=== PATIENT | male | born 1955 | race Caucasian/White ===

== ENCOUNTER 2018-05-22 21:17 | Emergency (ER) | payer MEDICARE, SELFPAY ==
[2018-05-22 22:06] LABS: Hemoglobin 15.8 g/dL (14.0-18.0); Mean Corpuscular HGB CONC 32.9 g/dL (32.0-36.0); Mean Corpuscular Hemoglobin 31.8 pg (27.0-31.0); Mean Corpuscular Volume 96.5 fL (78.0-98.0); Mean Platelet Volume 7.3 fL (7.4-10.4); Platelet Count 206 thou/uL (130-400); RBC Distribution Width 12.1 % (11.5-14.5); Red Blood Cell (RBC) Count 4.97 mill/uL (4.70-6.10); White Blood Cell (WBC) Count 10.5 thou/uL (4.8-10.8)
[2018-05-22 22:21] LABS: Lymphocytes 10 % (21-51); MDiff Complete? YES; Monocytes 5 % (0-10); Neutrophil 85 % (42-75); Platelet Morphology Comment Appears Adequate; RBC Morphology Normal
[2018-05-22] MEDS ORDERED: Ketorolac Tromethamine 30 MG/ML VIAL ONE (22:28)
[2018-05-22 22:29] LABS: ALT (SGPT) 31 U/L (8-55); AST (SGOT) 21 U/L (5-34); Albumin 4.6 g/dL (3.4-4.8); Alkaline Phosphatase 101 U/L (40-150); Anion Gap 15 mmol/L (10-20); BUN (Urea Nitrogen) 30 mg/dL (8.4-25.7); Bilirubin, Total 0.8 mg/dL (0.2-1.2); Calc. Creatinine Clearance 0 mL/min (70-130); Calcium 9.5 mg/dL (7.8-10.44); Carbon Dioxide 26 mmol/L (23-31); Chloride 97 mmol/L (98-107); Estimated GFR-MDRD 62; Globulin 3.2 g/dL (2.4-3.5); Glucose 94 mg/dL (80-115); Protein, Total 7.8 g/dL (5.8-8.1); Sodium 134 mmol/L (136-145)
--- NOTE | 2018-05-22 22:33 | RAD ---
TWO VIEWS CHEST: 05/22/18 HISTORY: Dyspnea. Difficulty breathing. PA and lateral views of the chest is obtained on 05/22/18. Comparison made to previous exam from 06/05/16. Two views chest demonstrate a dual lead intracardiac defibrillator again seen. The cardiac silhouette is of normal size. No evidence of effusions, pneumonia or pneumothorax seen. No evidence of pulmonar y edema seen. No definite evidence of pneumonia or pneumothorax seen. Osteoporosis in the thoracic spine seen. IMPRESSION: No evidence of acute intrathoracic abnormality seen. POS: [facility]
== END 2018-05-23 00:47 | disposition home or self-care (01) ==
LOC: ERS 21:17
DX: J44.1 Chronic obstructive pulmonary disease with (acute) exacerbation (principal); J01.90 Acute sinusitis, unspecified; I50.9 Heart failure, unspecified; E78.5 Hyperlipidemia, unspecified; Z87.891 Personal history of nicotine dependence; Z71.6 Tobacco abuse counseling
CPT/HCPCS: 71046; 80053; 83880; 84484; 85025; 93005; 94640; 96374; 99406; J1885; J7620

== ENCOUNTER 2018-06-08 17:55 | Inpatient (IN) | payer MEDICARE ==
[~2018-06-08 17:55] MED LIST: ISOVUE-370 76%-LOCM 1 ML ONE
[2018-06-08 18:41] LABS: #Basophils 0.1 thou/uL (0.0-0.2); #Eosinphils 0.5 thou/uL (0.0-0.7); #Lymphocytes 2.7 thou/uL (1.20-3.40); #Monocytes 1.6 thou/uL (0.11-0.59); #Neutrophils 6.4 thou/uL (1.40-6.50); %Basophils 0.7 % (0.0-1.0); %Eosinophils 4.7 % (0.0-10.0); %Monocytes 14.4 % (0.0-10.0); %Neutrophils 56.2 % (42.0-75.0); Hemoglobin 14.1 g/dL (14.0-18.0); Mean Corpuscular HGB CONC 33.4 g/dL (32.0-36.0); Mean Corpuscular Hemoglobin 31.7 pg (27.0-31.0); Mean Corpuscular Volume 94.8 fL (78.0-98.0); Mean Platelet Volume 6.2 fL (7.4-10.4); Platelet Count 313 thou/uL (130-400); RBC Distribution Width 11.8 % (11.5-14.5); Red Blood Cell (RBC) Count 4.46 mill/uL (4.70-6.10); White Blood Cell (WBC) Count 11.3 thou/uL (4.8-10.8)
[2018-06-08 19:02] LABS: ALT (SGPT) 28 U/L (8-55); AST (SGOT) 16 U/L (5-34); Albumin 4.3 g/dL (3.4-4.8); Alkaline Phosphatase 100 U/L (40-150); Anion Gap 14 mmol/L (10-20); BUN (Urea Nitrogen) 26 mg/dL (8.4-25.7); Bilirubin, Total 0.8 mg/dL (0.2-1.2); CK (CPK) 43 U/L (30-200); Calc. Creatinine Clearance 0 mL/min (70-130); Calcium 9.9 mg/dL (7.8-10.44); Carbon Dioxide 31 mmol/L (23-31); Chloride 95 mmol/L (98-107); Estimated GFR-MDRD 60; Globulin 2.9 g/dL (2.4-3.5); Glucose 118 mg/dL (80-115); Lipase 16 U/L (8-78); Protein, Total 7.2 g/dL (5.8-8.1); Sodium 136 mmol/L (136-145)
[2018-06-08] MEDS ORDERED: Magnesium 2 GM/50 ML BAG (IN WATER) ONE (19:26)
[2018-06-08] MEDS ORDERED: methylPREDNISolone Sod Succ/PF 125 MG/2 ML VIAL ONE (19:26)
--- NOTE | 2018-06-08 19:45 | RAD ---
CHEST ONE VIEW: History: Dyspnea. Comparison: 05-22-18 FINDINGS: Lungs are mildly hyperinflated. No pneumothorax. The cardiac device is similar. No focal airspace con solidation. No acute osseous abnormality. IMPRESSION: No acute intrathoracic abnormality. Possible small sliding hiatal hernia. POS: [facility]
--- NOTE | 2018-06-08 20:24 | CT ---
CT ANGIOGRAM OF THE CHEST WITH CONTRAST: History: Dyspnea. COPD. Comparison: Chest radiograph same day. CT angiogram chest, 06-01-16. FINDINGS: CT angiogram of the chest performed after the intravenous administration of contrast. 3D rendering wa s provided. There is severe central alveolar emphysema. Scarring in the right lung apex. Scarring in the left celeste g apex. No consolidation. No pneumothorax. No effusion. Mild bilateral lower lobe bronchial wall thickening suggesting chronic bronchitis. No suspicious pulm onary nodule. No proximal segmental pulmonary arterial filling defect. No significant pericardial effusion. Limited evaluation of the upper abdomen appears unremarkable. No aortic dilation. Chronic appearing T6 superior endplate fracture. No acute displaced rib fracture. IMPRESSION: 1. No proximal segmental pulmonary arterial filling defect. 2. No acute process. 3. Severe emphysema. POS: [facility]
[2018-06-08] MEDS ORDERED: Acetaminophen 325 MG TAB ONE (23:56)
[2018-06-09] MEDS ORDERED: Ondansetron PF 4 MG/2 ML Vial IVP PRN (01:47)
[2018-06-09] MEDS ORDERED: Zolpidem Tartrate 5 MG TAB PO PRN (01:47)
[2018-06-09 03:28] LABS: #Lymphocytes 0.9 thou/uL (1.20-3.40); #Monocytes 0.2 thou/uL (0.11-0.59); #Neutrophils 7.2 thou/uL (1.40-6.50); %Basophils 0.3 % (0.0-1.0); %Eosinophils 0.2 % (0.0-10.0); %Lymphocytes 10.8 % (21.0-51.0); %Neutrophils 86.7 % (42.0-75.0); Hemoglobin 13.4 g/dL (14.0-18.0); Mean Corpuscular HGB CONC 33.2 g/dL (32.0-36.0); Mean Corpuscular Hemoglobin 31.7 pg (27.0-31.0); Mean Corpuscular Volume 95.4 fL (78.0-98.0); Mean Platelet Volume 6.5 fL (7.4-10.4); Platelet Count 302 thou/uL (130-400); RBC Distribution Width 11.7 % (11.5-14.5); Red Blood Cell (RBC) Count 4.22 mill/uL (4.70-6.10); White Blood Cell (WBC) Count 8.3 thou/uL (4.8-10.8)
[2018-06-09 03:46] LABS: Anion Gap 15 mmol/L (10-20); BUN (Urea Nitrogen) 26 mg/dL (8.4-25.7); Calc. Creatinine Clearance 0 mL/min (70-130); Calcium 10.1 mg/dL (7.8-10.44); Carbon Dioxide 29 mmol/L (23-31); Chloride 96 mmol/L (98-107); Estimated GFR-MDRD 60; Glucose 177 mg/dL (80-115); Potassium 4.2 mmol/L (3.5-5.1); Sodium 136 mmol/L (136-145)
[2018-06-09] MEDS ORDERED: methylPREDNISolone Sod Succ 40 MG VIAL ONE (04:30)
--- NOTE | 2018-06-09 04:38 | HP ---
CHIEF COMPLAINT: Shortness of breath. HISTORY OF PRESENT ILLNESS: This is a 63-year-old male who was admitting to the emergency room because of shortness of breath upon ambulation. The patient states that he has been having difficulty breathing for a while, states that he has been admitted here in the past as well having recently been seen in the ER about 10 days ago. The patient does admit to a past medical history of significant smoking and also states that he has tried to cut back, but unable to do so. The patient states at point in time of admission, he was having severe dyspnea on exertion and some mild chest discomfort as well, so he decided to come to the hospital. The patient, otherwise, denies any other associated symptoms. No alleviating or aggravating factors. The patient is seen and examined in the ER. All questions answered. REVIEW OF SYSTEMS: All systems reviewed, pertinent positives in HPI, otherwise negative. ALLERGIES: CODEINE AND PENICILLIN. FAMILY HISTORY: The patient states that hypertension runs in his family. SOCIAL HISTORY: Social drinker, heavy smoker. MEDICATIONS: See MAR. PHYSICAL EXAMINATION: VITAL SIGNS: Blood pressure was 144/88, respiratory rate of 18, saturations 100% on 4 L nasal cannula, heart rate of 65. GENERAL: The patient is lying in bed comfortably, sleeping at the beginning of the exam. HEENT: Pupils are equal, round, and reactive to light and accommodation. Extraocular muscles intact. Oral cavity moist and pink. NECK: Supple, mobile, and nontender. Thyroid appreciated. CHEST: Reveals severe wheezing in all lung doe. No increase in AP diameter. Barrel chested is noted. CARDIOVASCULAR: 2/6 systolic ejection murmur. Regular rate and rhythm, S1 and S2. ABDOMEN: Positive bowel sounds. Soft, nontender, and nondistended. No rebound or guarding noted. EXTREMITIES: 2+ peripheral pulses noted. Trace edema of bilateral lower extremities. NEUROLOGIC: Alert and oriented x3. No loss of sensory function. LABORATORY DATA: CBC within normal limits. Basic metabolic panel within normal limits. CTA of the chest was done, which shows no PE, however, severe emphysema noted. ASSESSMENT: 1. Shortness of breath. 2. Emphysema. 3. Chronic obstructive pulmonary disease. 4. Hypertension. 5. Hyperlipidemia. 6. Dyspnea on exertion. PLAN: 1. At this point in time, we will admit the patient to Internal Medicine Team. We will start the patient on DuoNebs as well as p.r.n. oxygen and steroids. 2. Advised the patient to stop smoking and follow a more relatively healthier lifestyle. 3. Resume home medications when reconciliation was done. 4. The patient wishes to remain a full code. 5. Blood cultures ordered and pending. However, no signs of SIRS or sepsis noted, so we will hold off on antibiotics. 6. P.r.n. medications for pain and shortness of breath as well as insomnia. 7. Case and plan discussed with patient at length. He understood and agreed with this plan. Job ID: [id number]
[2018-06-09] MEDS ORDERED: Carvedilol 6.25 MG TAB PO SCH (08:00)
[2018-06-09] MEDS ORDERED: Enoxaparin Sodium 40 MG/0.4 ML SYRINGE ONE (08:53)
[2018-06-09] MEDS ORDERED: Furosemide 40 MG TAB ONE (08:54)
[2018-06-09] MEDS ORDERED: Losartan 25 MG TAB PO SCH (09:00)
[2018-06-09] MEDS ORDERED: Enoxaparin Sodium 40 MG/0.4 ML SYRINGE SC SCH (09:00)
[2018-06-09] MEDS: Furosemide 40 MG TAB PO SCH (09:05)
[2018-06-09] MEDS: Aspirin 81 mg Enteric Coated Tablet PO SCH (09:05)
[2018-06-09] MEDS: methylPREDNISolone Sod Succ 40 MG VIAL IVP SCH ×4 (11:52→23:30)
[2018-06-09] MEDS: Acetaminophen 325 MG TAB PO PRN ×2 (12:04→23:30)
[2018-06-09] MEDS ORDERED: guaiFENesin ER 600 MG TAB PO SCH (12:45)
[2018-06-09] MEDS ORDERED: Cepastat Lozenges 1 LOZ PO PRN (13:11)
--- NOTE | 2018-06-09 13:11 | PDOC.PN ---
- Subjective Encounter Start Date: 06/09/18 Encounter Start Time: 12:30 Patient seen and examined for COPD exacerbation. Feels better. Cough will mild production. No new complaints. No overnight events - Objective MAR Reviewed: Yes Vital Signs & Weight: Vital Signs (12 hours) Temp Pulse Resp BP BP Pulse Ox 06/09/18 11:40 96.7 F L 76 28 H 132/77 91 L 06/09/18 09:05 135/89 Weight Weight 140 lb Result Diagrams: 06/09/18 03:19 06/09/18 03:19 Radiology Reviewed by me: Yes (CTA - No PE, Emphysema) Phys Exam - Physical Examination Constitutional: NAD Respiratory: no rales, no rhonchi, wheezing present (scat) Cardiovascular: RRR, no rub Gastrointestinal: soft, non-tender, positive bowel sounds Musculoskeletal: no edema Neurological: non-focal, moves all 4 limbs Dx/Plan - Plan plan discussed w/ family, DVT proph w/lovenox, DVT proph w/SCDs 1. Acute hypoxic resp failure due to COPD Exacerbation 2. Chronic systolic HF EF 15% ACC stage C s/p AICD - followed by HF clinic 3. CAD 4. Former smoker 5. HLD 6. Dyslipidemia 7. CKD 2 PLAN: Cont IV Solumedrol Add PO Atbx Add Nebs Q4h Resume home meds Cont ASA Cont Lasix at 40 mg daily per patient req Consult Pulmonary Patient unable to tolerate Prednisone Review of Systems - Review of Systems Constitutional: negative: fever, chills, sweats, weakness, malaise, other Gastrointestinal: negative: Nausea, Vomiting, Abdominal Pain, Diarrhea, Constipation, Melena, Hematochezia, Other - Medications/Allergies Allergies/Adverse Reactions: Allergies Allergy/AdvReac Type Severity Reaction Status Date / Time codeine Allergy Verified 12/26/13 17:40 Penicillins Allergy Verified 12/26/13 17:40 prednisone AdvReac Unknown Verified 06/09/18 13:15 Medications: Current Medications Acetaminophen (Tylenol) 650 mg PO Q4H PRN PRN Reason: Headache/Fever/Mild Pain (1-3) Last Admin: 06/09/18 12:04 Dose: 650 mg Albuterol/Ipratropium (Duoneb) 3 ml NEB [id number] NICHOLAS Albuterol/Ipratropium (Duoneb) 3 ml NEB [id number] PRN PRN Reason: SOB &/or Wheezing Aspirin (Ecotrin) 81 mg PO DAILY [facility] Last Admin: 06/09/18 09:05 Dose: 81 mg Carvedilol (Coreg) 25 mg PO BID-WM [facility] Cefdinir (Omnicef) 300 mg PO BID [facility] Cefdinir (Omnicef) 300 mg PO ONE [facility] Doxycycline Hyclate (Vibramycin) 100 mg PO BID [facility] Doxycycline Hyclate (Vibramycin) 100 mg PO ONE [facility] Furosemide (Lasix) 40 mg PO DAILY [facility] Last Admin: 06/09/18 09:05 Dose: 40 mg Guaifenesin (Mucinex) 600 mg PO Q12HR [facility] Guaifenesin (Mucinex) 600 mg PO NOW [facility] Stop: 06/09/18 14:45 Losartan Potassium (Cozaar) 25 mg PO DAILY [facility] Methylprednisolone Sodium Succinate (Solu-Medrol) 40 mg IVP Q6HR [facility] Last Admin: 06/09/18 12:06 Dose: 40 mg Mometasone Furoate/Formoterol Fumar (Dulera 200 Mcg/5 Mcg Inhaler) 2 puff INH BID-RT [facility] Ondansetron HCl (Zofran) 4 mg IVP Q6H PRN PRN Reason: Nausea/Vomiting Pantoprazole Sodium (Protonix) 40 mg PO DAILY [facility] Pantoprazole Sodium (Protonix) 40 mg PO ONE ONE Stop: 06/09/18 12:46 Sodium Chloride (Flush - Normal Saline) 10 ml IVF Q12HR PRN PRN Reason: Saline Flush Spironolactone (Aldactone) 25 mg PO QAM-[facility] Spironolactone (Aldactone) 25 mg PO ONE [facility]
[2018-06-09] MEDS ORDERED: Spironolactone 25 MG TAB PO SCH (15:00)
[2018-06-09] MEDS ORDERED: Cefdinir 300 MG CAP PO SCH (15:00)
[2018-06-09] MEDS ORDERED: Doxycycline 100 MG CAP PO SCH (15:00)
[2018-06-09] MEDS: Carvedilol 25 MG TAB PO SCH (16:54)
[2018-06-09] MEDS: Mometasone/Formoterol 120 PUFF INHALER INH SCH (19:14)
[2018-06-09] MEDS ORDERED: Atorvastatin Calcium 40 MG TAB PO SCH (21:00)
[2018-06-09] MEDS: Cefdinir 300 MG CAP PO SCH (21:56)
[2018-06-09] MEDS: guaiFENesin ER 600 MG TAB PO SCH (21:57)
[2018-06-09] MEDS: Doxycycline 100 MG CAP PO SCH (21:57)
--- NOTE | 2018-06-09 23:41 | CON ---
DATE OF CONSULTATION: 06/09/2018 SERVICE: Pulmonary Medicine. REASON FOR CONSULTATION: COPD exacerbation. HISTORY OF PRESENT ILLNESS: The patient is a 63-year-old white male with past medical history significant for COPD. He was in his usual state of health until 1 to 2 weeks prior to admission. He started having increasing dyspnea on exertion , cough. He did not have much in the way of sputum production beyond his baseline. That being said, it has not changed colors. He denies any current fevers, chills, nausea, vomiting, or diarrhea. He is not having any night sweats or hemoptysis. Denies having any unexplained weight loss. Either way, he presented to the emergency department because of the dyspnea on exertion or vague chest discomfort. He has been placed in the hospital. He has had a significant improvement with steroids, nebulized medications, and antibiotics. Otherwise, he is returning to his usual state of health, although he is not quite there yet. He has a history of being intubated because of respiratory issues. This occurred about 1 year ago. At that point, my colleague, Dr. Ford took care of him. PAST MEDICAL HISTORY: 1. COPD. 2. Tobacco abuse. 3. Hypertension. 4. Chronic systolic heart failure (nonischemic). 5. Right eye blindness. PAST SURGICAL HISTORY: 1. Right hand surgery. 2. AICD placement. FAMILY HISTORY: Noncontributory. SOCIAL HISTORY: The patient has greater than a 70 pack-year history of smoking, previously quit in 2013. He is a social alcohol drinker, but denies using it to excess. Also uses marijuana occasionally, but denies any other illicit drugs. He has no exposures to chemicals, dust, asbestos, or tuberculosis so far as he is aware. ALLERGIES: 1. PENICILLIN. 2. CODEINE. MEDICATIONS: List of his inpatient medications was reviewed. Multiple updates were made. REVIEW OF SYSTEMS: General, head, ears, eyes, nose, throat, cardiovascular, respiratory, GI, , musculoskeletal, neurologic, and skin are negative except as mentioned in the HPI. PHYSICAL EXAMINATION: VITAL SIGNS: Afebrile, pulse 78, blood pressure 120/67, respirations 18, saturation 95% on 2 L nasal cannula. GENERAL: The patient is awake and alert, in no apparent distress. LUNGS: Very reduced air entry. There is a prolonged expiratory phase. He is not really moving enough air to appreciate adventitious sounds. HEART: Normal rate. Regular. ABDOMEN: Soft, nontender, and nondistended. Bowel sounds are positive. MUSCULOSKELETAL: No cyanosis or clubbing. No pitting in the bilateral lower extremities. NEUROLOGIC: Grossly nonfocal. LABORATORY DATA: WBC 8.3, hemoglobin 13.4, and platelets 302,000. INR 1.3. PH 7.38, pCO2 of 37, pO2 of 109 one year ago. Basic metabolic profile and liver function studies are unremarkable. BNP 439, which is slightly above baseline. Troponins are negative x2. Urinalysis is unremarkable. Blood cultures x2 are negative to date. IMAGING DATA: Chest x-ray demonstrates hyperexpanded lungs with no acute cardiopulmonary abnormality. CTA of the chest demonstrates no evidence of pulmonary embolism, fairly extensive emphysematous changes are noted. He has a large anterior cardiac space. There is biapical scarring present. Compared to May of 2016, one year ago, it is difficult to tell whether or not it is new or old because he had so many changes on that CT scan associated with his volume overload state at that time. ASSESSMENT: 1. Acute hypoxic respiratory failure. 2. Chronic obstructive pulmonary disease with acute exacerbation. 3. Nonischemic cardiomyopathy (EF previously 20%). DISCUSSION AND PLAN: We will continue the steroids, nebulized medications, and antibiotics. We will be careful with volume. Currently, he looks essentially euvolemic. That being said, a dose of Lasix will be considered if he fails to improve significantly to baseline. Pulmonary Critical Care will continue to follow along while the patient remains inhouse. Dr. Ford has an established relationship with Mr. Thompson and we will continue following starting tomorrow. 70 minutes have been devoted to this patient in various activities. I personally reviewed all imaging studies and laboratory data noted within this document. For fifty percent of this time, I was interacting with the patient at the bedside or coordinating care with the care team. For the remainder of the time I was immediately available to the patient in the hospital unit. Job ID: [id number] [facility]
[2018-06-10] MEDS: methylPREDNISolone Sod Succ 40 MG VIAL IVP SCH ×3 (06:15→18:58)
[2018-06-10] MEDS: Mometasone/Formoterol 120 PUFF INHALER INH SCH ×2 (07:59→18:14)
[2018-06-10] MEDS: Aspirin 81 mg Enteric Coated Tablet PO SCH (08:38)
[2018-06-10] MEDS: guaiFENesin ER 600 MG TAB PO SCH ×2 (08:38→20:41)
[2018-06-10] MEDS: Spironolactone 25 MG TAB PO SCH (08:39)
[2018-06-10] MEDS: Carvedilol 25 MG TAB PO SCH ×2 (08:39→18:56)
[2018-06-10] MEDS: Furosemide 40 MG TAB PO SCH (08:39)
[2018-06-10] MEDS: Losartan 25 MG TAB PO SCH (08:40)
[2018-06-10] MEDS: Cefdinir 300 MG CAP PO SCH ×2 (08:41→20:41)
[2018-06-10] MEDS: Doxycycline 100 MG CAP PO SCH ×2 (08:41→20:41)
--- NOTE | 2018-06-10 12:00 | PRG ---
DATE OF SERVICE: 06/10/2018 SUBJECTIVE: A 63-year-old gentleman, who was admitted with a COPD exacerbation and bronchitis. He said he is still weak. He is short of breath. OBJECTIVE: VITAL SIGNS: Temperature 97, pulse 77, saturations are 94% on 3 L, and blood pressure 130/59. CHEST: Decreased breath sounds. No wheezing. CARDIAC: Normal S1 and S2. No gallops. ABDOMEN: No mass. IMPRESSION: Severe exacerbation of bronchitis. PLAN: Continue present treatment; antibiotics, neb treatments, and steroids. Switch over to oral prednisone tomorrow. We will follow. Job ID: [id number]
[2018-06-10] MEDS ORDERED: Melatonin 3 MG TAB PO PRN (17:56)
--- NOTE | 2018-06-10 18:01 | PDOC.PN ---
- Subjective Encounter Start Date: 06/10/18 Encounter Start Time: 11:30 Patient seen and examined for Resp failure. SOB on mild exertion. Cough +. No new complaints. No overnight events - Objective MAR Reviewed: Yes Vital Signs & Weight: Vital Signs (12 hours) Temp Pulse Resp BP Pulse Ox 06/10/18 15:55 97.6 F 67 18 123/66 93 L 06/10/18 15:15 86 22 H 92 L 06/10/18 12:00 97.6 F 87 24 H 139/82 92 L 06/10/18 11:44 92 20 92 L 06/10/18 08:00 97.6 F 77 22 H 120/59 L 94 L 06/10/18 07:50 89 20 93 L Weight Weight 140 lb I&O: 06/09/18 06/10/18 06/11/18 06:59 06:59 06:59 Output Total 250 Balance -250 Result Diagrams: 06/09/18 03:19 06/09/18 03:19 Phys Exam - Physical Examination Constitutional: NAD Neck: no JVD Respiratory: wheezing present (scat) with bilateral rhonchi Cardiovascular: RRR, no rub Gastrointestinal: soft, non-tender, positive bowel sounds Musculoskeletal: no edema Dx/Plan - Plan DVT proph w/SCDs 1. Acute hypoxic resp failure due to COPD Exacerbation 2. Chronic systolic HF - EF 15% ACC stage C s/p AICD - followed by HF clinic 3. CAD 4. Former smoker 5. HLD 6. Dyslipidemia 7. CKD 2 PLAN: Cont IV Steroids Cont Omnicef/Doxycycline Cont Nebs Q4h Cont current meds as below Cont ASA Review of Systems - Review of Systems Cardiovascular: negative: chest pain, palpitations, orthopnea, paroxysmal nocturnal dyspnea, edema, light headedness, other Gastrointestinal: negative: Nausea, Vomiting, Abdominal Pain, Diarrhea, Constipation, Melena, Hematochezia, Other - Medications/Allergies Allergies/Adverse Reactions: Allergies Allergy/AdvReac Type Severity Reaction Status Date / Time codeine Allergy Verified 06/09/18 14:45 Penicillins Allergy Verified 06/09/18 14:45 prednisone AdvReac Unknown Verified 06/09/18 13:15 Medications: Current Medications Acetaminophen (Tylenol) 650 mg PO Q4H PRN PRN Reason: Headache/Fever/Mild Pain (1-3) Last Admin: 06/09/18 23:30 Dose: 650 mg Albuterol/Ipratropium (Duoneb) 3 ml NEB [id number] [facility] Last Admin: 06/10/18 15:15 Dose: 3 ml Albuterol/Ipratropium (Duoneb) 3 ml NEB [id number] PRN PRN Reason: SOB &/or Wheezing Aspirin (Ecotrin) 81 mg PO DAILY [facility] Last Admin: 06/10/18 08:38 Dose: 81 mg Carvedilol (Coreg) 25 mg PO BID-[facility] Last Admin: 06/10/18 08:39 Dose: 25 mg Cefdinir (Omnicef) 300 mg PO BID [facility] Last Admin: 06/10/18 08:41 Dose: 300 mg Diphenhydramine HCl (Benadryl) 25 mg PO Q6H PRN PRN Reason: Itching & Insomnia Doxycycline Hyclate (Vibramycin) 100 mg PO BID [facility] Last Admin: 06/10/18 08:41 Dose: 100 mg Furosemide (Lasix) 40 mg PO DAILY [facility] Last Admin: 06/10/18 08:39 Dose: 40 mg Guaifenesin (Mucinex) 600 mg PO Q12HR [facility] Last Admin: 06/10/18 08:38 Dose: 600 mg Losartan Potassium (Cozaar) 25 mg PO DAILY [facility] Last Admin: 06/10/18 08:40 Dose: 25 mg Melatonin (Melatonin) 3 mg PO HS PRN PRN Reason: Insomnia Methylprednisolone Sodium Succinate (Solu-Medrol) 40 mg IVP Q6HR [facility] Last Admin: 06/10/18 14:06 Dose: 40 mg Mometasone Furoate/Formoterol Fumar (Dulera 200 Mcg/5 Mcg Inhaler) 2 puff INH BID-RT [facility] Last Admin: 06/10/18 07:59 Dose: 2 puff Ondansetron HCl (Zofran) 4 mg IVP Q6H PRN PRN Reason: Nausea/Vomiting Pantoprazole Sodium (Protonix) 40 mg PO DAILY [facility] Last Admin: 06/10/18 08:38 Dose: 40 mg Sodium Chloride (Flush - Normal Saline) 10 ml IVF Q12HR PRN PRN Reason: Saline Flush Last Admin: 06/10/18 14:09 Dose: 10 ml Spironolactone (Aldactone) 25 mg PO QAM-[facility] Last Admin: 06/10/18 08:39 Dose: 25 mg Throat Lozenges (Cepastat Lozenges) 1 brennon PO Q2H PRN PRN Reason: Sore Throat
[2018-06-10] MEDS: diphenhydrAMINE 25 MG CAP PO PRN (20:41)
[2018-06-11] MEDS: methylPREDNISolone Sod Succ 40 MG VIAL IVP SCH ×2 (00:01→06:11)
[2018-06-11 07:12] LABS: Anion Gap 16 mmol/L (10-20); BUN (Urea Nitrogen) 24 mg/dL (8.4-25.7); Calc. Creatinine Clearance 65 mL/min (70-130); Calcium 9.1 mg/dL (7.8-10.44); Carbon Dioxide 24 mmol/L (23-31); Chloride 102 mmol/L (98-107); Estimated GFR-MDRD 74; Glucose 199 mg/dL (80-115); Potassium 4.5 mmol/L (3.5-5.1); Sodium 137 mmol/L (136-145)
[2018-06-11] MEDS: Mometasone/Formoterol 120 PUFF INHALER INH SCH ×2 (07:42→19:40)
[2018-06-11] MEDS: Losartan 25 MG TAB PO SCH (08:06)
[2018-06-11] MEDS: Furosemide 40 MG TAB PO SCH (08:06)
[2018-06-11] MEDS: guaiFENesin ER 600 MG TAB PO SCH ×2 (08:06→21:25)
[2018-06-11] MEDS: Carvedilol 25 MG TAB PO SCH ×2 (08:07→16:19)
[2018-06-11] MEDS: Spironolactone 25 MG TAB PO SCH (08:07)
[2018-06-11] MEDS: Doxycycline 100 MG CAP PO SCH ×2 (08:07→21:25)
--- NOTE | 2018-06-11 09:15 | PRG ---
DATE OF SERVICE: 06/11/2018 SUBJECTIVE: This morning, he is better. He is less short of breath. He is walking in the halls. OBJECTIVE: VITAL SIGNS: His saturations are 94% on 3 L, respiratory rate 14, temperature 97, blood pressure 120/64. CHEST: Decreased breath sounds. No wheezing. CARDIAC: Normal S1, S2. No gallops. ABDOMEN: No masses. IMPRESSION: Chronic obstructive pulmonary disease exacerbation, bronchitis, former smoker, quit smoking a month ago. Switch over to prednisone, PT and supportive care. Hopefully, he can be discharged home in the next 24-48 hours. Job ID: [id number]
[2018-06-11] MEDS: Cefdinir 300 MG CAP PO SCH (11:32)
[2018-06-11] MEDS: Aspirin 81 mg Enteric Coated Tablet PO SCH (12:34)
--- NOTE | 2018-06-11 15:32 | PRG ---
DATE OF SERVICE: 06/11/2018 SUBJECTIVE: Ronen Thompson is a 63-year-old gentleman, who was switched over to prednisone today. I had multiple phone calls from the patient's nurses that the patient and family members were concerned that the prednisone that he took in the past made him crazy. He has refused to take the prednisone. His allergies include prednisone along with penicillin and codeine. Therefore, his prednisone has been discontinued as per the patient and family wishes. Prednisone side affects apparently making him hallucinating crazy. Job ID: [id number]
[2018-06-11] MEDS: Acetaminophen 325 MG TAB PO PRN (16:21)
--- NOTE | 2018-06-11 17:31 | PDOC.PN ---
- Subjective Encounter Start Date: 06/11/18 Encounter Start Time: 11:00 Patient seen and examined for Resp failure. SOB improving. No new complaints. No overnight events - Objective MAR Reviewed: Yes Vital Signs & Weight: Vital Signs (12 hours) Temp Pulse Resp BP BP Pulse Ox 06/11/18 15:53 97.6 F 72 16 124/66 94 L 06/11/18 14:47 74 16 94 L 06/11/18 11:46 97.6 F 70 24 H 126/68 95 06/11/18 10:59 78 16 94 L 06/11/18 08:00 97.6 F 70 24 H 124/64 94 L 06/11/18 07:39 69 16 93 L Weight Weight 140 lb I&O: 06/10/18 06/11/18 06/12/18 06:59 06:59 06:59 Intake Total 360 Output Total 250 Balance -250 360 Result Diagrams: 06/09/18 03:19 06/11/18 06:40 Phys Exam - Physical Examination Constitutional: NAD Respiratory: no rales, wheezing present Cardiovascular: RRR, no rub Gastrointestinal: soft, non-tender, positive bowel sounds Musculoskeletal: no edema Neurological: moves all 4 limbs Dx/Plan - Plan DVT proph w/SCDs 1. Acute hypoxic resp failure due to COPD Exacerbation 2. Chronic systolic HF - EF 15% ACC stage C s/p AICD 3. CAD 4. Former smoker 5. HLD 6. Dyslipidemia 7. CKD 2 PLAN: Cont Doxycycline, O2 supp and Nebs Steroids changed to PO Cont current meds as below Review of Systems - Review of Systems Respiratory: Cough, Dry, Shortness of Breath, SOB with Excertion, Wheezing. negative: Hemoptysis, Pleuritic Pain, Sputum Cardiovascular: negative: chest pain, palpitations, orthopnea, paroxysmal nocturnal dyspnea, edema, light headedness, other Gastrointestinal: negative: Nausea, Vomiting, Abdominal Pain, Diarrhea, Constipation, Melena, Hematochezia, Other - Medications/Allergies Allergies/Adverse Reactions: Allergies Allergy/AdvReac Type Severity Reaction Status Date / Time codeine Allergy Verified 06/09/18 14:45 Penicillins Allergy Verified 06/09/18 14:45 prednisone AdvReac Unknown Verified 06/09/18 13:15 Medications: Current Medications Acetaminophen (Tylenol) 650 mg PO Q4H PRN PRN Reason: Headache/Fever/Mild Pain (1-3) Last Admin: 06/11/18 16:21 Dose: 650 mg Albuterol/Ipratropium (Duoneb) 3 ml NEB [id number] [facility] Last Admin: 06/11/18 14:47 Dose: 3 ml Albuterol/Ipratropium (Duoneb) 3 ml NEB [id number] PRN PRN Reason: SOB &/or Wheezing Aspirin (Ecotrin) 81 mg PO DAILY [facility] Last Admin: 06/11/18 12:34 Dose: 81 mg Carvedilol (Coreg) 25 mg PO BID-[facility] Last Admin: 06/11/18 16:19 Dose: 25 mg Diphenhydramine HCl (Benadryl) 25 mg PO Q6H PRN PRN Reason: Itching & Insomnia Last Admin: 06/10/18 20:41 Dose: 25 mg Doxycycline Hyclate (Vibramycin) 100 mg PO BID [facility] Last Admin: 06/11/18 08:07 Dose: 100 mg Furosemide (Lasix) 40 mg PO DAILY [facility] Last Admin: 06/11/18 08:06 Dose: 40 mg Guaifenesin (Mucinex) 600 mg PO Q12HR [facility] Last Admin: 06/11/18 08:06 Dose: 600 mg Losartan Potassium (Cozaar) 25 mg PO DAILY [facility] Last Admin: 06/11/18 08:06 Dose: 25 mg Melatonin (Melatonin) 3 mg PO HS PRN PRN Reason: Insomnia Mometasone Furoate/Formoterol Fumar (Dulera 200 Mcg/5 Mcg Inhaler) 2 puff INH BID-RT [facility] Last Admin: 06/11/18 07:42 Dose: 2 puff Ondansetron HCl (Zofran) 4 mg IVP Q6H PRN PRN Reason: Nausea/Vomiting Pantoprazole Sodium (Protonix) 40 mg PO DAILY [facility] Last Admin: 06/11/18 08:06 Dose: 40 mg Prednisone (Prednisone) 20 mg PO QAM [facility] Sodium Chloride (Flush - Normal Saline) 10 ml IVF Q12HR PRN PRN Reason: Saline Flush Last Admin: 06/10/18 19:00 Dose: 10 ml Spironolactone (Aldactone) 25 mg PO QAM-[facility] Last Admin: 06/11/18 08:07 Dose: 25 mg Throat Lozenges (Cepastat Lozenges) 1 brennon PO Q2H PRN PRN Reason: Sore Throat
[2018-06-12] MEDS: Acetaminophen 325 MG TAB PO PRN ×2 (03:23→09:20)
[2018-06-12] MEDS: Mometasone/Formoterol 120 PUFF INHALER INH SCH ×2 (06:58→19:41)
[2018-06-12] MEDS ORDERED: predniSONE 20 MG TAB PO SCH ×3 (08:00→09:00)
[2018-06-12] MEDS: Doxycycline 100 MG CAP PO SCH ×2 (08:46→20:36)
[2018-06-12] MEDS: Spironolactone 25 MG TAB PO SCH (08:46)
[2018-06-12] MEDS: Carvedilol 25 MG TAB PO SCH ×2 (08:47→16:25)
[2018-06-12] MEDS: Losartan 25 MG TAB PO SCH (08:47)
[2018-06-12] MEDS: guaiFENesin ER 600 MG TAB PO SCH ×2 (08:47→20:36)
[2018-06-12] MEDS: Furosemide 40 MG TAB PO SCH (08:48)
[2018-06-12] MEDS: Aspirin 81 mg Enteric Coated Tablet PO SCH (08:48)
--- NOTE | 2018-06-12 10:08 | PRG ---
DATE OF SERVICE: 06/12/2018 SUBJECTIVE: This morning, he is awake, alert, and responsive. He was agitated last night, but this morning, he is better. OBJECTIVE: VITAL SIGNS: His saturations are 92% on room air, respiratory rate 18, temperature 97, and blood pressure 130/86. CHEST: Decreased breath sounds. No wheezing. CARDIAC: Normal S1 and S2. No gallops. ABDOMEN: No masses. IMPRESSION: 1. Chronic obstructive pulmonary disease exacerbation. 2. Former smoker. 3. Major reaction to prednisone. Refused to take prednisone. 4. Rhinitis. PLAN: Pulmonary jimenez, he is stable enough to be discharged home. Follow up with his primary care physician. He can see Pulmonary if he wants to in 4 weeks. Job ID: [id number]
[2018-06-12] MEDS: diphenhydrAMINE 25 MG CAP PO PRN ×2 (10:15→21:52)
[2018-06-12] MEDS ORDERED: methylPREDNISolone 4 mg Tablet PO SCH (10:45)
--- NOTE | 2018-06-12 16:09 | PDOC.PN ---
- Subjective Encounter Start Date: 06/12/18 Encounter Start Time: 09:00 Patient seen and examined for COPD exacerbation. Feels gen weak. Dry cough. Not slept well. No other complaints. No overnight events - Objective MAR Reviewed: Yes Vital Signs & Weight: Vital Signs (12 hours) Temp Pulse Resp BP BP Pulse Ox 06/12/18 13:23 97.7 F 70 18 123/79 94 L 06/12/18 10:49 89 18 92 L 06/12/18 08:00 97.0 F L 71 18 132/86 97 06/12/18 06:56 81 18 90 L 06/12/18 04:39 97.7 F 65 18 131/67 94 L Weight Weight 140 lb I&O: 06/11/18 06/12/18 06/13/18 06:59 06:59 06:59 Intake Total 360 Balance 360 Result Diagrams: 06/09/18 03:19 06/11/18 06:40 Phys Exam - Physical Examination Constitutional: NAD Respiratory: no rales, wheezing present Scat rhonchi Cardiovascular: RRR, no rub Gastrointestinal: soft, non-tender, positive bowel sounds Musculoskeletal: no edema Neurological: non-focal, moves all 4 limbs Psychiatric: A&O x 3 Dx/Plan - Plan DVT proph w/SCDs 1. Acute hypoxic resp failure due to COPD Exacerbation 2. Chronic systolic HF - EF 15% ACC stage C s/p AICD 3. CAD 4. Former smoker 5. HLD 6. Dyslipidemia 7. CKD 2 PLAN: Add low dose Medrol (Patient refusing to try Prednisone) Cont Doxycycline Cont O2 supp and Nebs Cont current meds as below Review of Systems - Review of Systems Respiratory: Cough, Dry, Wheezing. negative: Shortness of Breath, Hemoptysis, SOB with Excertion, Pleuritic Pain, Sputum Cardiovascular: negative: chest pain, palpitations, orthopnea, paroxysmal nocturnal dyspnea, edema, light headedness, other Gastrointestinal: negative: Nausea, Vomiting, Abdominal Pain, Diarrhea, Constipation, Melena, Hematochezia, Other - Medications/Allergies Allergies/Adverse Reactions: Allergies Allergy/AdvReac Type Severity Reaction Status Date / Time codeine Allergy Verified 06/09/18 14:45 Penicillins Allergy Verified 06/09/18 14:45 prednisone AdvReac Unknown Verified 06/09/18 13:15 Medications: Current Medications Acetaminophen (Tylenol) 650 mg PO Q4H PRN PRN Reason: Headache/Fever/Mild Pain (1-3) Last Admin: 06/12/18 09:20 Dose: 650 mg Albuterol/Ipratropium (Duoneb) 3 ml NEB [id number] [facility] Last Admin: 06/12/18 14:11 Dose: 3 ml Albuterol/Ipratropium (Duoneb) 3 ml NEB [id number] PRN PRN Reason: SOB &/or Wheezing Aspirin (Ecotrin) 81 mg PO DAILY [facility] Last Admin: 06/12/18 08:48 Dose: 81 mg Carvedilol (Coreg) 25 mg PO BID-[facility] Last Admin: 06/12/18 08:47 Dose: 25 mg Diphenhydramine HCl (Benadryl) 25 mg PO Q6H PRN PRN Reason: Itching & Insomnia Last Admin: 06/12/18 10:15 Dose: 25 mg Doxycycline Hyclate (Vibramycin) 100 mg PO BID [facility] Last Admin: 06/12/18 08:46 Dose: 100 mg Furosemide (Lasix) 40 mg PO DAILY [facility] Last Admin: 06/12/18 08:48 Dose: 40 mg Guaifenesin (Mucinex) 600 mg PO Q12HR [facility] Last Admin: 06/12/18 08:47 Dose: 600 mg Losartan Potassium (Cozaar) 25 mg PO DAILY [facility] Last Admin: 06/12/18 08:47 Dose: 25 mg Melatonin (Melatonin) 3 mg PO HS PRN PRN Reason: Insomnia Methylprednisolone (Medrol) 4 mg PO DAILY [facility] Mometasone Furoate/Formoterol Fumar (Dulera 200 Mcg/5 Mcg Inhaler) 2 puff INH BID-RT [facility] Last Admin: 06/12/18 06:58 Dose: 2 puff Ondansetron HCl (Zofran) 4 mg IVP Q6H PRN PRN Reason: Nausea/Vomiting Pantoprazole Sodium (Protonix) 40 mg PO DAILY [facility] Last Admin: 06/12/18 08:48 Dose: 40 mg Sodium Chloride (Flush - Normal Saline) 10 ml IVF Q12HR PRN PRN Reason: Saline Flush Last Admin: 06/10/18 19:00 Dose: 10 ml Spironolactone (Aldactone) 25 mg PO QAM-[facility] Last Admin: 06/12/18 08:46 Dose: 25 mg Throat Lozenges (Cepastat Lozenges) 1 brennon PO Q2H PRN PRN Reason: Sore Throat
[2018-06-13 08:16] VITALS: BP 139/80; TEMP 97.5
[2018-06-13] MEDS: Furosemide 40 MG TAB PO SCH (08:53)
[2018-06-13] MEDS: guaiFENesin ER 600 MG TAB PO SCH (08:53)
[2018-06-13] MEDS: Losartan 25 MG TAB PO SCH (08:53)
[2018-06-13] MEDS: Doxycycline 100 MG CAP PO SCH (08:53)
[2018-06-13] MEDS: Carvedilol 25 MG TAB PO SCH (08:53)
[2018-06-13] MEDS: Aspirin 81 mg Enteric Coated Tablet PO SCH (08:53)
[2018-06-13] MEDS: Spironolactone 25 MG TAB PO SCH (08:54)
[2018-06-13] MEDS ORDERED: methylPREDNISolone 4 mg Tablet PO SCH (09:00)
--- NOTE | 2018-06-13 15:46 | DIS ---
DATE OF ADMISSION: 06/08/2018 DATE OF DISCHARGE: 06/13/2018 DISCHARGE DISPOSITION: Home. FOLLOWUP: 1. Follow up with primary care physician in 1 week. 2. Follow up with [facility] as scheduled. 3. Follow up with Dr. Cory Ford in 1-2 weeks. ALLERGIES: THE PATIENT IS ALLERGIC TO CODEINE, PENICILLIN, AND PREDNISONE. DISCHARGE MEDICATIONS: Prednisolone 4 mg daily for next 7 days, doxycycline 100 mg b.i.d. for next 5 days. All other home medications were left unchanged. The patient was seen and examined on the day of discharge. Denies any new complaints. Shortness of breath has significantly improved. The patient is currently on room air. BRIEF HOSPITAL COURSE: The patient is a 63-year-old male with COPD presented to the emergency room with worsening shortness of breath along with cough. Please refer to the history and physical for further details. The patient was admitted to the hospital with a diagnosis of acute hypoxic respiratory failure secondary to COPD exacerbation. CT scan of the chest showed COPD changes. He was started on IV Solu-Medrol, ceftriaxone, and doxycycline along with oxygen and nebulizer treatment. He is currently on room air. He has been cleared by Pulmonary for discharge. FINAL DIAGNOSES: 1. Acute hypoxic respiratory failure secondary to chronic obstructive pulmonary disease exacerbation. 2. Chronic systolic heart failure, ejection fraction 15% range, status post AICD, [facility]. 3. Coronary artery disease. 4. Former smoker. 5. Chronic kidney disease stage 2. PLAN: Plan of care was discussed with the patient in detail. He stated understanding. Job ID: [id number]
--- NOTE | 2018-06-13 16:06 | EKG ---
Test Reason : Blood Pressure : / mmHG Vent. Rate : 092 BPM Atrial Rate : 092 BPM P-R Int : 130 ms QRS Dur : 116 ms QT Int : 412 ms P-R-T Axes : 061 -78 095 degrees QTc Int : 509 ms Atrial-sensed ventricular-paced rhythm with occasional Premature ventricular complexes Biventricular pacemaker detected Abnormal ECG Confirmed by RADHA WOLF DO ([id number]), electronic news gathering editor HAILEE DICKSON ([id number] on 06/13/2018 4:06:31 PM Referred By: Confirmed By:RADHA WOLF DO
== END 2018-06-13 11:51 | disposition home or self-care (01) | DRG 189 ==
LOC: ERS 17:55 → ERHOLD 20:57 → 3SE 06-09 00:09 → ONC 06-11 18:38
PROVIDERS: ADMIT Internal Medicine; ATTEND Internal Medicine
DX: J96.01 Acute respiratory failure with hypoxia (principal); I50.22 Chronic systolic (congestive) heart failure; I13.0 Hypertensive heart and chronic kidney disease with heart failure and stage 1 through stage 4 chronic kidney disease, or unspecified chronic kidney disease; I42.8 Other cardiomyopathies; J43.9 Emphysema, unspecified; N18.2 Chronic kidney disease, stage 2 (mild); E78.00 Pure hypercholesterolemia, unspecified; I25.10 Atherosclerotic heart disease of native coronary artery without angina pectoris; H54.7 Unspecified visual loss; J31.0 Chronic rhinitis; Z95.810 Presence of automatic (implantable) cardiac defibrillator; Z87.891 Personal history of nicotine dependence; Z88.8 Allergy status to other drugs, medicaments and biological substances; Z88.0 Allergy status to penicillin; Z88.5 Allergy status to narcotic agent; Z79.899 Other long term (current) drug therapy
CPT/HCPCS: 36415; 71045; 71275; 80048; 80053; 82550; 83690; 83880; 84484; 85025; 87040; 93005; 94640; 96361; 96365; 96375; 96376; J1650; J2920; J2930; J3475; J7620; Q0163; Q9966

== ENCOUNTER 2018-09-11 11:13 | Emergency (ER) | payer MEDICARE ==
--- NOTE | 2018-09-11 13:00 | ULT ---
SCROTAL ULTRASOUND WITH COLOR AND SPECTRAL DOPPLER IMAGING AND VASCULAR DUPLEX: HISTORY: Left testicular pain. FINDINGS: The left testis measures 2.8 x 4.8 x 2.3 cm. The right testis measures 3 x 4.1 x 2.4 cm. The left e pididymis is slightly more prominent than the right, but there is no evidence for significant abnorma l increased blood flow. There is no intratesticular mass. There are trace hydroceles. There is no evidence for testicular torsion. There is arterial inflow and venous outflow to both testes. IMPRESSION: 1. No evidence for testicular torsion. 2. No intratesticular mass. 3. Slightly more prominent left epididymis compared to right. 4. Trace hydroceles. POS: [facility]
== END 2018-09-11 13:22 | disposition home or self-care (01) ==
LOC: ERS 11:13
DX: N50.812 Left testicular pain (principal); E78.5 Hyperlipidemia, unspecified; J44.9 Chronic obstructive pulmonary disease, unspecified; I10 Essential (primary) hypertension; Z79.82 Long term (current) use of aspirin; Z87.891 Personal history of nicotine dependence; Z79.899 Other long term (current) drug therapy
CPT/HCPCS: 76870; 93976

== ENCOUNTER 2018-11-16 09:59 | Observation (INO) | payer MEDICARE ==
[2018-11-16 10:27] LABS: #Basophils 0.1 thou/uL (0.0-0.2); #Eosinphils 0.2 thou/uL (0.0-0.7); #Lymphocytes 1.9 thou/uL (1.20-3.40); #Monocytes 1.2 thou/uL (0.11-0.59); #Neutrophils 9.2 thou/uL (1.40-6.50); %Basophils 0.4 % (0.0-1.0); %Eosinophils 1.6 % (0.0-10.0); %Lymphocytes 15.2 % (21.0-51.0); %Monocytes 9.4 % (0.0-10.0); %Neutrophils 73.3 % (42.0-75.0); Hemoglobin 16.3 g/dL (14.0-18.0); Mean Corpuscular HGB CONC 34.9 g/dL (32.0-36.0); Mean Corpuscular Hemoglobin 31.5 pg (27.0-31.0); Mean Corpuscular Volume 90.4 fL (78.0-98.0); Mean Platelet Volume 7.2 fL (7.4-10.4); Platelet Count 231 thou/uL (130-400); RBC Distribution Width 12.3 % (11.5-14.5); Red Blood Cell (RBC) Count 5.18 mill/uL (4.70-6.10); White Blood Cell (WBC) Count 12.5 thou/uL (4.8-10.8)
--- NOTE | 2018-11-16 10:31 | CT ---
Exam: Head CT without contrast HISTORY: Syncope COMPARISON: 06/01/2016 FINDINGS: Hemorrhage: No intraparenchymal hemorrhage or extra-axial hematoma. Brain parenchyma: Cortical beckford-white matter differentiation is preserved. No mass effect or midline shift. Basilar cisterns are patent. Ventricular system: Ventricles and sulci are patent and symmetric. Calvarium: Intact. Sinuses and mastoid air cells: Adequate aeration. IMPRESSION: No acute intracranial process.
--- NOTE | 2018-11-16 10:43 | CT ---
CT FACIAL BONES PERFORMED WITHOUT CONTRAST ENHANCEMENT: Date: 11/16/18 HISTORY: Facial trauma. FINDINGS: Slight deformity to the tip of the nasal bone, which appears to be related to an old injury. The zygo matic arches appear intact. There are no air fluid levels within the sinuses. There is some mucosal c hange within the ethmoid air cells. There are no signs of any orbital or maxillary fractures. The pterygoid processes are intact. The condyles are in normal position, and there are no signs of any mandibular fractures. There are some arthritic changes of the spine incidentally seen. The visualized brain parenchyma show s no focal findings. IMPRESSION: No CT evidence of any acute facial bone fracture. POS: [facility]
[2018-11-16 10:49] LABS: ALT (SGPT) 18 U/L (8-55); AST (SGOT) 16 U/L (5-34); Albumin 4.7 g/dL (3.4-4.8); Alkaline Phosphatase 111 U/L (40-150); Anion Gap 17 mmol/L (10-20); BUN (Urea Nitrogen) 64 mg/dL (8.4-25.7); Bilirubin, Total 1.9 mg/dL (0.2-1.2); Calc. Creatinine Clearance 0 mL/min (70-130); Calcium 10.1 mg/dL (7.8-10.44); Carbon Dioxide 29 mmol/L (23-31); Chloride 87 mmol/L (98-107); Estimated GFR-MDRD 34; Globulin 2.9 g/dL (2.4-3.5); Glucose 132 mg/dL (80-115); Potassium 3.2 mmol/L (3.5-5.1); Protein, Total 7.6 g/dL (5.8-8.1); Sodium 130 mmol/L (136-145)
[2018-11-16 11:10] LABS: CKMB 1.7 ng/mL (0-6.6)
[2018-11-16 12:46] LABS: Magnesium 2.7 mg/dL (1.6-2.6); Phosphorus 3.1 mg/dL (2.3-4.7)
[2018-11-16 13:42] LABS: Troponin I 0.029 ng/mL (< 0.028)
[2018-11-16 14:31] LABS: Bilirubin Negative (Negative); Blood, Urine Negative (Negative); Clarity Clear (Clear); Glucose, Urine (Dipstick) Normal (Negative); Leukocyte Negative Leu/uL (Negative); Nitrite Negative (Negative); Protein, Urine (Dipstick) Negative (Neg-Trace); Urobilinogen Normal mg/dL (Less than 2)
[2018-11-16 14:36] VITALS: BMI 22.6
[2018-11-16] MEDS ORDERED: NS 0.9% w/ 20 MEQ KCL 1,000 ML IV SCH (14:45)
[2018-11-16] MEDS: Acetaminophen 325 MG TAB PO PRN ×2 (15:34→22:18)
[2018-11-16] MEDS ORDERED: Ondansetron ODT 4 MG TAB PO PRN (15:55)
[2018-11-16] MEDS ORDERED: Senokot S 8.6-50 MG TAB PO PRN (15:55)
[2018-11-16] MEDS ORDERED: Ondansetron PF 4 MG/2 ML Vial IVP PRN (15:55)
[2018-11-16] MEDS ORDERED: Calcium Carbonate 500 MG ChewTAB PO PRN ×2 (15:55→16:13)
[2018-11-16] MEDS ORDERED: Nitroglycerin 0.4 MG TAB (25 Tab Bottle) PO PRN (15:58)
[2018-11-16] MEDS ORDERED: Mag-Al 1200 mg/1200 mg/30 ML UDCUP PO PRN (16:13)
[2018-11-16] MEDS ORDERED: Potassium Chloride 10 MEQ TAB PO SCH (16:15)
[2018-11-16] MEDS: Carvedilol 3.125 MG TAB PO SCH (16:18)
[2018-11-16] MEDS ORDERED: Carvedilol 3.125 MG TAB PO SCH (17:00)
--- NOTE | 2018-11-16 18:37 | HP ---
PRIMARY CARE PHYSICIAN: [facility]. CHIEF COMPLAINT: Syncopal episode. HISTORY OF PRESENT ILLNESS: The patient is a 63-year-old male with chronic systolic heart failure, ejection fraction 15% range, status post AICD, coronary artery disease and hypertension, presented to the emergency room with above complaints. Last week, the patient was evaluated at [facility] due to significant volume overload. Lasix was increased from 80 mg daily to 120 mg. He was also started on metolazone. Over the next 2-1/2 days, he lost approximately 12 pounds. He became generally weak. Over the last weekend, the weakness progressively got worsen. This morning while he was walking to the bathroom, he had a syncopal episode. He fell with his face down. He was diaphoretic and had urinary incontinence. No tongue biting reported. He does not recall the above event. No chest pain, shortness of breath, palpitations, fever, chills, recent immobilization, travel reported. In the emergency room, his initial vital signs showed temperature 97.5, respirations of 18, pulse rate of 64 with a blood pressure 81/59 with O2 saturation 97% on room air. He received 500 mL of normal saline in the emergency room. The [employer] interrogation was negative for significant arrhythmia. His EKG showed paced rhythm. PAST MEDICAL HISTORY: 1. Chronic systolic heart failure, ejection fraction 15% range. 2. Hypertension. 3. Former smoker. 4. COPD. 5. Right eye blindness. PAST SURGICAL HISTORY: 1. Cataract surgery. 2. AICD placement. 3. Right hand surgery. ALLERGIES: THE PATIENT IS ALLERGIC TO PENICILLIN AND CODEINE. CURRENT HOME MEDICATIONS: 1. Lasix 80 mg in the morning and 40 in the afternoon. 2. Aspirin 81 mg daily. 3. Carvedilol 25 mg b.i.d. 4. Advair as needed. 5. DuoNeb as needed. 6. Losartan 25 mg daily. 7. Lovastatin 20 mg at bedtime. 8. Aldactone 25 mg daily. SOCIAL HISTORY: The patient currently lives at home with his spouse. He is a former smoker. Denies any alcohol or drug use. He is full code and makes his own decision with the help of his family. FAMILY HISTORY: Hypertension runs in his family. REVIEW OF SYSTEMS: All other review of systems was reviewed and was found. PHYSICAL EXAMINATION: VITAL SIGNS: As discussed above. GENERAL: A 63-year-old male in no apparent distress. He had mild headache earlier that is improving. HEENT: There is abrasion over the left side of the forehead. There was also a septal hematoma on the right. There is also abrasion over the nose. No oral lesion. NECK: Supple. No JVD. No carotid bruit. LUNGS: Essentially clear to auscultation bilaterally. No wheezing, rales, rhonchi. HEART: S1, S2 present. Regular rate and rhythm. No rubs or gallops. ABDOMEN: Soft, nontender. Bowel sounds present. EXTREMITIES: No edema or calf tenderness. NEUROLOGIC: Grossly nonfocal. Power was 5/5 in all extremities. PSYCHIATRY: Alert, awake, and oriented x3. Normal affect. SKIN: Warm and dry. LYMPH NODES: No palpable lymph nodes in the neck. PERIPHERAL VASCULAR: Radial pulses palpable bilaterally. MUSCULOSKELETAL: No joint swelling or tenderness. LABORATORY FINDINGS: WBC 12.5 with hemoglobin 16.3, platelet 231. Troponin of 0.031. Sodium 130, potassium 3.2, chloride 87, bicarb 29, BUN 64, creatinine 2.0. His baseline creatinine is 1.01. Total bilirubin 1.9. EKG by my review as discussed above. CT scan of the brain was negative for acute findings. CT scan of the facial bones was negative for acute fractures. IMPRESSION: 1. Syncope suspected to be secondary to hypotension. 2. Acute kidney injury on chronic kidney disease stage 2 probably secondary to diuresis. 3. Hypotension. 4. Hyponatremia/hypokalemia. 5. Abnormal LFTs probably secondary to passive hepatic congestion. 6. Elevated troponin probably secondary to congestive heart failure/type 2 myocardial infarction. 7. Leukocytosis unlikely to be infectious. 8. History of hypertension. 9. Former smoker. 10. Chronic obstructive pulmonary disease. 11. Coronary artery disease. 12. Nasal contusion. PLAN: The patient will be monitored on the telemetry unit. We will continue gentle hydration. Replace potassium. We will recheck labs in a.m. Check orthostatic vitals in a.m. Hold diuretics, Aldactone, and losartan. Resume carvedilol at low dose. Vital signs q.4 hourly. Nebulizer treatment as needed. Plan of care was discussed with the patient and the family at the bedside. They stated understanding. Job ID: [id number]
[2018-11-16] MEDS: diphenhydrAMINE 25 MG CAP PO SCH (20:03)
[2018-11-16] MEDS ORDERED: Famotidine 20 MG TAB PO SCH (21:00)
--- NOTE | 2018-11-17 00:45 | PDOC.EVN ---
Event Note - Event Note Event Note: Patient had 20 neats of V tach; known Hx of HF and AICD. Patient asymptomatic. Will order stat K+ and Mg++, and replete as necessary.
[2018-11-17 01:26] LABS: Magnesium 2.3 mg/dL (1.6-2.6); Potassium 3.2 mmol/L (3.5-5.1)
[2018-11-17] MEDS ORDERED: Potassium Chloride 20 MEQ TAB PO SCH ×2 (01:45→08:15)
[2018-11-17 07:10] LABS: #Basophils 0.1 thou/uL (0.0-0.2); #Eosinphils 0.2 thou/uL (0.0-0.7); #Lymphocytes 2.1 thou/uL (1.20-3.40); #Monocytes 1.3 thou/uL (0.11-0.59); #Neutrophils 5.2 thou/uL (1.40-6.50); %Basophils 0.7 % (0.0-1.0); %Eosinophils 2.6 % (0.0-10.0); %Neutrophils 58.7 % (42.0-75.0); Hemoglobin 13.4 g/dL (14.0-18.0); Mean Corpuscular HGB CONC 34.5 g/dL (32.0-36.0); Mean Corpuscular Hemoglobin 31.4 pg (27.0-31.0); Mean Platelet Volume 7.2 fL (7.4-10.4); Platelet Count 196 thou/uL (130-400); RBC Distribution Width 12.2 % (11.5-14.5); Red Blood Cell (RBC) Count 4.27 mill/uL (4.70-6.10); White Blood Cell (WBC) Count 8.9 thou/uL (4.8-10.8)
[2018-11-17 07:14] LABS: ALT (SGPT) 12 U/L (8-55); AST (SGOT) 13 U/L (5-34); Albumin 3.7 g/dL (3.4-4.8); Alkaline Phosphatase 80 U/L (40-150); Anion Gap 10 mmol/L (10-20); BUN (Urea Nitrogen) 43 mg/dL (8.4-25.7); Calc. Creatinine Clearance 61 mL/min (70-130); Calcium 8.7 mg/dL (7.8-10.44); Carbon Dioxide 31 mmol/L (23-31); Chloride 97 mmol/L (98-107); Estimated GFR-MDRD 59; Globulin 2.1 g/dL (2.4-3.5); Glucose 91 mg/dL (80-115); Potassium 3.9 mmol/L (3.5-5.1); Protein, Total 5.8 g/dL (5.8-8.1); Sodium 134 mmol/L (136-145)
[2018-11-17] MEDS: Aspirin 81 mg Enteric Coated Tablet PO SCH (09:01)
[2018-11-17] MEDS: Carvedilol 3.125 MG TAB PO SCH ×2 (09:01→16:14)
[2018-11-17] MEDS: Acetaminophen 325 MG TAB PO PRN (09:01)
--- NOTE | 2018-11-17 16:43 | PDOC.HOSPP ---
- Subjective Encounter Date: 11/17/18 Encounter Time: 13:00 Subjective: Patient seen and examined for Syncope. Feels better. No CP/SOB or Palpitations. No new complaints. No overnight events - Objective Vital Signs & Weight: Vital Signs (12 hours) Temp Pulse Resp BP BP BP Pulse Ox 11/17/18 15:21 97.5 F L 68 16 121/61 96 11/17/18 11:54 97.5 F L 67 20 129/73 97 11/17/18 07:48 97.6 F 59 L 16 126/69 122/66 121/68 95 Weight Weight 161 lb 3.2 oz I&O: 11/16/18 11/17/18 11/18/18 06:59 06:59 06:59 Intake Total 1813 Output Total 1725 Balance 88 Result Diagrams: 11/17/18 06:30 11/17/18 06:30 EKG Reviewed by me: Yes (Tele Paced) Hospitalist ROS - Review of Systems Respiratory: denies: cough, dry, shortness of breath, hemoptysis, SOB with excertion, pleuritic pain, sputum, wheezing, other Cardiovascular: denies: chest pain, palpitations, orthopnea, paroxysmal noc. dyspnea, edema, light headedness, other - Medication Medications: Active Medications Generic Name Dose Route Start Last Admin Trade Name Freq PRN Reason Stop Dose Admin Acetaminophen 650 mg 11/16/18 14:59 11/17/18 09:01 Tylenol PO 650 mg Q4H PRN Administration Headache/Fever or Mild Pain Aspirin 81 mg 11/17/18 09:00 11/17/18 09:01 Ecotrin PO 81 mg DAILY NICHOLAS Administration Calcium Carbonate 1,000 mg 11/16/18 16:13 11/16/18 18:25 Tums PO 1,000 mg Q4H PRN Administration Heartburn or Indigestion Carvedilol 3.125 mg 11/16/18 17:00 11/17/18 16:14 Coreg PO 3.125 mg BID-WM NICHOLAS Administration Diphenhydramine HCl 25 mg 11/16/18 21:00 11/16/18 20:03 Benadryl PO 25 mg HS NICHOLAS Administration - Exam General Appearance: NAD Neck: supple, no JVD Heart: RRR, no gallops, no rubs, normal peripheral pulses Respiratory: CTAB, no wheezes, no rales, no ronchi, normal chest expansion Gastrointestinal: soft, non-tender, non-distended, normal bowel sounds Extremities: no edema Neurological: no new deficit Psychiatric: normal affect, A&O x 3 Hosp A/P - Plan plan discussed w/ family IMPRESSION: 1. Syncope suspected to be secondary to hypotension. 2. Acute kidney injury on chronic kidney disease stage 2. improving. 3. Hypotension. 4. Hyponatremia/hypokalemia. 5. Abnormal LFTs probably secondary to passive hepatic congestion. 6. Elevated troponin probably secondary to congestive heart failure/type 2 myocardial infarction. 7. NSVT 8. History of hypertension. 9. Former smoker. 10. Chronic obstructive pulmonary disease. 11. Coronary artery disease. 12. Nasal contusion. No need for surgical intervention per Dr Perez. 13. Leukocytosis unlikely to be infectious. PLAN: Cont Coreg at low dose Hold diuretics, Aldactone and losartan. IVF dced Cont to monitor Consult Cardiology due to NSVT
--- NOTE | 2018-11-17 18:51 | PRG ---
DATE OF SERVICE: 11/17/2018 SUBJECTIVE: Mr. Thompson is a 63-year-old man with a history of nonischemic dilated cardiomyopathy. He had a syncopal episode. Recently, he has been in the outpatient clinic with volume overload, received intravenous furosemide and a single dose of metolazone and the furosemide dose has increased. The patient, the day of the syncopal episode, felt weak and fatigued. He got up quickly, stood up, felt weak, lightheaded, broke out in a sweat, then he found himself on the floor. The patient was hypotensive here. He has received intravenous fluid. The diuretics have been held and he is feeling much better. OBJECTIVE: VITAL SIGNS: His blood pressure 120/60, pulse 68. LUNGS: Clear. CARDIAC: Normal S1, normal S2. ABDOMEN: Soft, nontender. EXTREMITIES: No edema. ASSESSMENT: 1. Dilated cardiomyopathy. 2. Previous pacemaker defibrillator, biventricular, functioning normally. 3. No significant dysrhythmias on the pacemaker defibrillator interrogation. 4. Volume depleted following diuretic therapy, now appears euvolemic. PLAN: 1. Resume carvedilol at a dose of 12.5 mg twice a day tomorrow. 2. Resume spironolactone. 3. Discussed Entresto as an option for therapy, but he has no insurance to help him buy medicines and does not appear feasible at the present time. Re-evaluate tomorrow, possibly home tomorrow. Job ID: [id number]
[2018-11-17] MEDS: diphenhydrAMINE 25 MG CAP PO SCH (20:48)
[2018-11-18] MEDS ORDERED: Spironolactone 25 MG TAB PO SCH (08:00)
[2018-11-18 08:49] VITALS: TEMP 97.3
[2018-11-18] MEDS ORDERED: Carvedilol 25 MG TAB PO SCH (09:00)
[2018-11-18] MEDS: Aspirin 81 mg Enteric Coated Tablet PO SCH (09:32)
[2018-11-18 11:09] LABS: Albumin 3.7 g/dL (3.4-4.8); Anion Gap 11 mmol/L (10-20); BUN (Urea Nitrogen) 20 mg/dL (8.4-25.7); BUN/Creatinine Ratio 23.53; Calc. Creatinine Clearance 90 mL/min (70-130); Calcium 8.9 mg/dL (7.8-10.44); Carbon Dioxide 27 mmol/L (23-31); Chloride 103 mmol/L (98-107); Estimated GFR-MDRD 90; Glucose 87 mg/dL (80-115); Magnesium 2.1 mg/dL (1.6-2.6); Phosphorus 1.6 mg/dL (2.3-4.7); Potassium 3.9 mmol/L (3.5-5.1); Sodium 137 mmol/L (136-145)
[2018-11-18] MEDS ORDERED: K-Phos Neutral 250 MG TAB PO SCH (12:00)
[2018-11-18 15:37] VITALS: BP 154/79
--- NOTE | 2018-11-18 21:41 | CON ---
DATE OF CONSULTATION: 11/16/2018 CONSULTING PHYSICIAN: Dr. Vanessa with the hospitalist service. HISTORY OF PRESENT ILLNESS: This is a 63-year-old male status post fall from standing after a syncopal episode today at home. The patient reports recent changes to his Lasix regimen and attributes this to potentially resulting in his syncopal episode today. The patient has no significant complaints facially, but on examination in the emergency room there was concern for a septal hematoma and I was consulted for evaluation. PAST MEDICAL HISTORY: Systolic CHF, hypertension, COPD, right-sided blindness. PAST SURGICAL HISTORY: Cataract removal, AICD, right hand surgery. MEDICATIONS: At home: 1. Lasix. 2. Aspirin 81 mg. 3. Coreg. 4. Advair. 5. DuoNeb. 6. Losartan. 7. Lovastatin. 8. Aldactone. ALLERGIES: PENICILLIN, CODEINE, PREDNISONE. SOCIAL HISTORY: Negative for smoking, alcohol, drugs. FAMILY HISTORY: Hypertension. REVIEW OF SYSTEMS: Patient reports some mild discomfort secondary to some superficial abrasions on the left forehead and left side of the nose regions. Otherwise review of systems negative. PHYSICAL EXAMINATION: VITAL SIGNS: Blood pressure 120/66, heart rate 71, respiratory rate 20, 95% oxygen saturation on room air, temperature 98.2. GENERAL: Alert, oriented x3, no apparent distress. HEAD AND NECK: Shows mild superficial abrasion in the left forehead region and similar mild superficial abrasion in the left nose. These wounds are clean and the nasal wound was dressed with a Band-Aid. HEENT: On eye exam, the extraocular movements are intact, visual acuity is grossly intact. Pupils are equally round and reactive to light, there is no noted diplopia. On nasal exam, the nasal dorsum is noted to be midline and symmetric without any external signs of trauma. There is no crepitus over the external nasal skeleton. Intranasal exam shows a deviated septum, which appears to be baseline secondary to multiple reported nasal injuries in the past per the patient. The nasal septum shows no signs of a hematoma and the mucosa overlying the nasal septum throughout is healthy, although the septum again does have asymmetries and the caudal nasal septum appears to be displaced secondary to previous trauma. Ear exam hearing is grossly intact. No external signs of trauma in the auricle or in the external auditory canal. No drainage from the ears. Oral exam is normal without signs of acute trauma. NECK: Also without signs of acute trauma externally. The trachea is midline. There are no signs of soft tissue injuries. IMAGING: CT scan of the face from an outside hospital shows no signs of acute underlying skeletal injury or fracture in the facial skeleton and there are no signs on the CT scan of the face of soft tissue changes that would be expected. There was a septal hematoma present. ASSESSMENT: Multiple facial abrasions status post fall from standing. PLAN: 1. There is no indication for surgical intervention at this time. 2. The abrasions to the face should be kept clean and dressed with antibiotic ointment. 3. The patient can follow up on an as-needed basis. Job ID: [id number]
[2018-11-19] MEDS ORDERED: Losartan 25 MG TAB PO SCH (09:00)
[2018-11-19] MEDS ORDERED: Furosemide 40 MG TAB PO SCH (09:00)
--- NOTE | 2018-11-19 10:09 | DIS ---
DATE OF ADMISSION: 11/16/2018 DATE OF DISCHARGE: 11/18/2018 DISCHARGE DISPOSITION: Home. FOLLOWUP: 1. Follow up with [facility] in 1 week. 2. Follow up with [facility] Clinic in 1 week. 3. Follow up with Cardiology, Dr. Mooney in 2 weeks. ALLERGIES: THE PATIENT IS ALLERGIC TO CODEINE, PENICILLIN, AND PREDNISONE. DISCHARGE MEDICATIONS: 1. Carvedilol 12.5 mg b.i.d. 2. Lasix 40 mg b.i.d. 3. Potassium phosphate 250 mg 3 times daily. 4. Aldactone 25 mg daily. 5. Losartan 25 mg daily. 6. Aspirin 81 mg daily. 7. Advair 230/21 as needed. 8. Lovastatin 20 mg at bedtime. The patient was seen and examined on the day of discharge. Denies any new complaints. No chest pain, shortness of breath, or palpitations reported. BRIEF HOSPITAL COURSE: The patient is a 63-year-old male with chronic systolic heart failure, ejection fraction 15%, status post AICD, hypertension, and coronary artery disease, presented to the hospital with syncopal episode. Please refer to the history and physical for further details. The patient was admitted to the telemetry unit as observation with a diagnosis of syncope secondary to hypotension. He also had acute kidney injury. He was seen by Cardiology, Dr. Mooney. His medications have been optimized. Renal function has significantly improved. He also had electrolyte abnormalities, which have been replaced. He has been cleared by Cardiology for discharge. He was advised to monitor the blood pressure and weight on a daily basis and to maintain a log. The patient also had multiple facial abrasions secondary to fall from standing. He was also evaluated by oral surgeon due to septal hematoma. There was no need for surgery per Oral Surgeon. He was advised to keep the abrasions to the face clean and apply antibiotic ointment. He appears stable for discharge. FINAL DIAGNOSES: 1. Syncope secondary to hypotension. 2. Acute kidney injury on chronic kidney disease stage 2, resolved. 3. Hypotension, resolved. 4. Hyponatremia/hypokalemia/hypophosphatemia, replaced. 5. Abnormal LFTs probably secondary to passive hepatic congestion. 6. Elevated troponin secondary to type 2 myocardial infarction/congestive heart failure. 7. Nonsustained ventricular tachycardia on AICD interrogation. Beta-blockers have been resumed. 8. Hypertension. 9. Former smoker. 10. Chronic obstructive pulmonary disease. 11. Coronary artery disease. 12. Nasal contusion with facial abrasions and septal hematoma. 13. Leukocytosis unlikely to be infectious. PLAN: Plan of care was discussed with the patient in detail. He stated understanding. Job ID: [id number]
== END 2018-11-18 15:36 | disposition home or self-care (01) ==
LOC: ERS 09:59 → 2SW 12:34
PROVIDERS: ADMIT Internal Medicine; ATTEND Internal Medicine
DX: I95.9 Hypotension, unspecified (principal); I13.0 Hypertensive heart and chronic kidney disease with heart failure and stage 1 through stage 4 chronic kidney disease, or unspecified chronic kidney disease; I50.22 Chronic systolic (congestive) heart failure; N18.2 Chronic kidney disease, stage 2 (mild); N17.9 Acute kidney failure, unspecified; I25.10 Atherosclerotic heart disease of native coronary artery without angina pectoris; J44.9 Chronic obstructive pulmonary disease, unspecified; E87.6 Hypokalemia; E87.1 Hypo-osmolality and hyponatremia; R77.8 Other specified abnormalities of plasma proteins; R94.5 Abnormal results of liver function studies; S00.33XA Contusion of nose, initial encounter; I47.2 Ventricular tachycardia; I42.0 Dilated cardiomyopathy; S00.81XA Abrasion of other part of head, initial encounter; J34.2 Deviated nasal septum; Z95.810 Presence of automatic (implantable) cardiac defibrillator; Z87.891 Personal history of nicotine dependence; Z79.82 Long term (current) use of aspirin; Z79.899 Other long term (current) drug therapy; Z88.0 Allergy status to penicillin; Z88.5 Allergy status to narcotic agent; W19.XXXA Unspecified fall, initial encounter; Y92.009 Unspecified place in unspecified non-institutional (private) residence as the place of occurrence of the external cause
CPT/HCPCS: 70450; 70486; 80053 ×2; 80069; 81003; 82553; 83735 ×3; 83880; 84100; 84132; 84484 ×2; 85025 ×2; 93005; 96361; 96365; 96366 ×2; 97139; 99291; G0378 ×4; 36415; 96360; J3480; Q0163

== ENCOUNTER 2019-01-21 14:37 | Inpatient (IN) | payer MEDICARE ==
[2019-01-21] MEDS ORDERED: DOBUTAMINE 250 MG-D5W 250 ML 250 MG in Premix Bag 1 BAG IV SCH (15:00)
--- NOTE | 2019-01-21 15:16 | RAD ---
CHEST 1 VIEW: HISTORY: Dyspnea. COMPARISON: 06/08/2018. FINDINGS: Cardiac silhouette is magnified by projection. Pulmonary vasculature is unremarkable. Mediastinum i s midline with aortic calcification and a multilead left subclavian cardiac electronic device. No lo bar consolidation or evidence of pneumothorax. nuclear monitoring technician leads overlie the chest. IMPRESSION: 1. Atherosclerosis. 2. Stable radiographic appearance of the chest. POS: [facility]
[2019-01-21 15:31] LABS: #Eosinphils 0.3 thou/uL (0.0-0.7); #Lymphocytes 2.9 thou/uL (1.20-3.40); #Monocytes 1.1 thou/uL (0.11-0.59); #Neutrophils 8.5 thou/uL (1.40-6.50); %Basophils 0.1 % (0.0-1.0); %Eosinophils 2.3 % (0.0-10.0); %Lymphocytes 22.7 % (21.0-51.0); %Monocytes 8.6 % (0.0-10.0); %Neutrophils 66.3 % (42.0-75.0); Hemoglobin 14.3 g/dL (14.0-18.0); Mean Corpuscular HGB CONC 34.6 g/dL (32.0-36.0); Mean Corpuscular Volume 92.5 fL (78.0-98.0); Platelet Count 210 thou/uL (130-400); RBC Distribution Width 12.3 % (11.5-14.5); Red Blood Cell (RBC) Count 4.48 mill/uL (4.70-6.10); White Blood Cell (WBC) Count 12.8 thou/uL (4.8-10.8)
[2019-01-21 15:45] LABS: ALT (SGPT) 29 U/L (8-55); AST (SGOT) 18 U/L (5-34); Albumin 4.9 g/dL (3.4-4.8); Alkaline Phosphatase 133 U/L (40-110); Anion Gap 16 mmol/L (10-20); BUN (Urea Nitrogen) 42 mg/dL (8.4-25.7); Bilirubin, Total 1.2 mg/dL (0.2-1.2); CK (CPK) 34 U/L (30-200); Calc. Creatinine Clearance 0 mL/min (70-130); Calcium 10.1 mg/dL (7.8-10.44); Carbon Dioxide 28 mmol/L (23-31); Chloride 97 mmol/L (98-107); Estimated GFR-MDRD 30; Globulin 2.9 g/dL (2.4-3.5); Glucose 96 mg/dL (80-115); Potassium 5.1 mmol/L (3.5-5.1); Protein, Total 7.8 g/dL (5.8-8.1); Sodium 136 mmol/L (136-145)
[2019-01-21 16:06] LABS: CKMB 1.7 ng/mL (0-6.6)
[2019-01-21] MEDS ORDERED: Bisacodyl 5 MG TAB PO PRN (17:20)
[2019-01-21] MEDS ORDERED: DOBUTamine 500 mg/250 ml 250 ML IVPB SCH (17:30)
[2019-01-21] MEDS ORDERED: Furosemide 40 MG/4 ML VIAL SLOW IVP SCH (17:30)
[2019-01-21] MEDS ORDERED: Furosemide 40 MG/4 ML VIAL ONE (17:35)
--- NOTE | 2019-01-21 18:07 | HP ---
PRIMARY CARE PROVIDER: Dr. Nilesh Vega. CHIEF COMPLAINT: Low blood pressure. HISTORY OF PRESENT ILLNESS: Mr. Thompson is a pleasant 63-year-old gentleman, who was seen at [facility] on January 21, 2019. He has a history of chronic systolic congestive heart failure, EF was 15% to 20% in May 2016. He is followed by heart failure clinic. He was admitted at this facility in October 2018 for fall secondary to orthostatic hypotension in the face of a diuretic use. He is accompanied by his in the emergency room. He reports that he went to heart function clinic today. He was found to have low pulse rate and low blood pressure. He reports having low energy levels and decreased activity over the last several days. He has an appointment at the [facility] on 31 January for LVAD eval. He was brought to the emergency room by heart transplant specialist for further management. He was recommended CCU admission and dobutamine drip. REVIEW OF SYSTEMS: All systems were reviewed and found to be negative except for the pertinent positives mentioned above. PAST MEDICAL HISTORY: Chronic systolic heart failure, hypertension, COPD, right eye blindness. PAST SURGICAL HISTORY: Cataract surgery, AICD placement, right hand surgery. ALLERGIES: PENICILLIN AND CODEINE. FAMILY HISTORY: Mother from myocardial infarction. HOME MEDICATIONS: 1. Spironolactone 25 mg daily. 2. Timolol eye drops, one drop to both eyes at bedtime. 3. Aspirin 81 mg daily. 4. Coreg 12.5 mg 2 times a day. 5. Lasix 40 mg 3 times a day. SOCIAL HISTORY: The patient is an ex-smoker. He denies alcohol use or recreational drug use. PHYSICAL EXAMINATION: GENERAL: On examination, Mr. Thompson is awake and alert, not in acute distress. VITAL SIGNS: Blood pressure is 112/64, pulse 83, respiratory rate 18, and oxygen saturation 94% on room air. He is afebrile. EYES: No scleral icterus, no conjunctival pallor. ENT: Moist mucosal membranes. No oropharyngeal erythema or exudates. NECK: Supple, nontender, he has jugular venous distention. RESPIRATORY: Accessory muscles of breathing are not active. Chest wall movements are symmetric bilaterally. Lungs are clear to auscultation without wheeze, rhonchi, or crepitations. CARDIOVASCULAR: S1 and S2 are heard, regular. Peripheral pulses palpable. ABDOMEN: Soft, nontender, bowel sounds are heard. NEUROLOGIC: Right eye blindness, otherwise cranial nerves 2 through 12 are intact. MUSCULOSKELETAL: Power is 5/5 in all 4 extremities. SKIN: Trace lower extremity edema. LYMPHATIC: No cervical lymphadenopathy. PSYCHIATRIC: Normal mood, normal affect, the patient is oriented to person, place, and time. LABORATORY DATA: Mr. Thompson' labs and investigations were reviewed. I reviewed his 12-lead electrocardiogram, which shows electronic AV paced rhythm. I also reviewed his chest x-ray, which does not show any pulmonary infiltrates. He has leukocytosis with 12,800 white cells, of which 66.3% are neutrophils. Hemoglobin and platelet count are normal. He has normal sodium, normal potassium, elevated blood urea nitrogen of 42, elevated creatinine of 2.23, creatinine was 1.36 on December 24, 2018. Alkaline phosphatase is mildly elevated at 133. Total bilirubin, AST and ALT are normal. Troponin I is in the indeterminate range at 0.033. BNP is normal at 77.3. ASSESSMENT AND PLAN: Mr. Thompson is a pleasant 63-year-old gentleman, who was seen at [facility] on January 21, 2019. His problem list includes: 1. Hypotension: Mr. Thompson is presenting with hypotension in the context of diuretic use. He will be admitted to the Critical Care Unit. He has already been started on dobutamine drip with improvement in his blood pressure. I discussed his case with his transplant specialist. He will assess him again later today. 2. Congestive heart failure: The patient has chronic systolic congestive heart failure, NYHA stage IV. We will provide him with one time dose of furosemide 40 mg IV and reassess. 3. Acute on chronic stage 3 renal failure: We will monitor creatinine and electrolytes, especially since the patient will be receiving furosemide as well. 4. Indeterminate troponin I: The patient denies any chest pain. We will recheck troponins. Troponin elevation is most likely secondary to congestive heart failure and chronic kidney disease. 5. Chronic obstructive pulmonary disease: This appears to be stable. Many thanks for allowing me to participate in your patient's care. Please feel free to contact me with any questions or concerns. LEVEL OF RISK: High. LEVEL OF COMPLEXITY: High. Job ID: [id number]
[2019-01-21 18:48] LABS: Troponin I Less than 0.010 ng/mL (< 0.028)
[2019-01-21] MEDS: Heparin 5,000 UNITS/ML VIAL SC SCH (20:09)
[2019-01-21] MEDS ORDERED: PHOS-NAK 1 PKT PACK PO PRN ×2 (21:40)
[2019-01-21] MEDS ORDERED: Potassium Phosphate 12 MMOL in Sodium Chloride 0.9% 250 ML 250 ML IV PRN (21:40)
[2019-01-21] MEDS ORDERED: Potassium Chloride 40 MEQ in Premix Bag 1 BAG IVPB PRN (21:40)
[2019-01-21] MEDS ORDERED: Potassium Chloride 20 MEQ TAB PO PRN (21:40)
[2019-01-21] MEDS ORDERED: CCU ELECTROLYTE REPLACEMENT PROTOCOL FS PRN (21:40)
[2019-01-21] MEDS ORDERED: Magnesium 2 GM/50 ML 2 GM in Premix Bag 1 BAG IVPB PRN (21:40)
[2019-01-21] MEDS ORDERED: Potassium Phosphate 15 MMOL in Sodium Chloride 0.9% 250 ML 250 ML IV PRN (21:40)
[2019-01-21] MEDS ORDERED: Magnesium Oxide 400 MG TAB PO PRN ×2 (21:40)
[2019-01-21] MEDS ORDERED: Potassium Phosphate 9 MMOL in Sodium Chloride 0.9% 100 ML IVPB PRN (21:40)
[2019-01-21] MEDS ORDERED: Potassium Chloride 40 MEQ in Sodium Chloride 0.9% 250 ML 250 ML IVPB PRN (21:40)
[2019-01-21] MEDS: Amiodarone 450 MG, Admixture Fee 1 EACH in Dextrose 5% in Water 250 ML IVPB SCH (21:45)
[2019-01-21] MEDS ORDERED: Amiodarone 150 MG, Admixture Fee 1 EACH in Dextrose 5% in Water 100 ML IVPB SCH (21:45)
[2019-01-21 21:56] LABS: Troponin I Less than 0.010 ng/mL (< 0.028)
[2019-01-21 22:16] LABS: Anion Gap 16 mmol/L (10-20); BUN (Urea Nitrogen) 36 mg/dL (8.4-25.7); Calc. Creatinine Clearance 0 mL/min (70-130); Calcium 9.3 mg/dL (7.8-10.44); Carbon Dioxide 26 mmol/L (23-31); Chloride 100 mmol/L (98-107); Estimated GFR-MDRD 41; Glucose 114 mg/dL (80-115); Magnesium 2.4 mg/dL (1.6-2.6); Sodium 138 mmol/L (136-145)
[2019-01-21 22:25] VITALS: BP 101/58
[2019-01-22] MEDS: DOBUTamine 500 mg/250 ml 250 ML IVPB SCH ×2 (03:07→20:37)
[2019-01-22 05:24] LABS: #Eosinphils 0.3 thou/uL (0.0-0.7); #Lymphocytes 2.2 thou/uL (1.20-3.40); #Monocytes 0.9 thou/uL (0.11-0.59); #Neutrophils 7.3 thou/uL (1.40-6.50); %Basophils 0.1 % (0.0-1.0); %Eosinophils 2.7 % (0.0-10.0); %Lymphocytes 20.8 % (21.0-51.0); %Monocytes 8.3 % (0.0-10.0); Hemoglobin 12.8 g/dL (14.0-18.0); Mean Corpuscular HGB CONC 34.5 g/dL (32.0-36.0); Mean Corpuscular Hemoglobin 31.7 pg (27.0-31.0); Mean Platelet Volume 6.8 fL (7.4-10.4); Platelet Count 167 thou/uL (130-400); RBC Distribution Width 12.3 % (11.5-14.5); Red Blood Cell (RBC) Count 4.02 mill/uL (4.70-6.10); White Blood Cell (WBC) Count 10.7 thou/uL (4.8-10.8)
[2019-01-22 05:39] LABS: INR-International Normal Ratio 1.1; Prothrombin Time 14.1 SEC (12.0-14.7)
[2019-01-22 05:50] LABS: ALT (SGPT) 23 U/L (8-55); AST (SGOT) 14 U/L (5-34); Alkaline Phosphatase 110 U/L (40-110); Anion Gap 13 mmol/L (10-20); BUN (Urea Nitrogen) 35 mg/dL (8.4-25.7); Bilirubin, Total 1.3 mg/dL (0.2-1.2); Calc. Creatinine Clearance 49 mL/min (70-130); Calcium 9.1 mg/dL (7.8-10.44); Carbon Dioxide 25 mmol/L (23-31); Chloride 99 mmol/L (98-107); Estimated GFR-MDRD 46; Globulin 2.5 g/dL (2.4-3.5); Glucose 125 mg/dL (80-115); Magnesium 2.3 mg/dL (1.6-2.6); Potassium 4.2 mmol/L (3.5-5.1); Protein, Total 6.5 g/dL (5.8-8.1); Sodium 133 mmol/L (136-145)
--- NOTE | 2019-01-22 07:27 | CON ---
DATE OF CONSULTATION: 01/21/2019 This is from Advanced Heart Failure Cardiology Consult Service. REASON FOR CONSULT: Management of cardiogenic shock. HISTORY OF PRESENT ILLNESS: Mr. Ronen Thompson, 63-year-old gentleman with history of a nonischemic cardiomyopathy, ejection fraction is 15% , presented in cardiogenic shock at clinic. For the last 2 weeks, he has decreased energy level. His walking distance has decreased. He can barely walk from his house to mailbox. That is about 200 yards. On return trip, he has to take a rest. Once he is in the house, he has to sit down. He has to rest for a while before he can take a few steps to get into the house. He also has decreased appetite. Eating a few bites will cause early satiety. He has been feeling so fatigued to the point where he needs to just lay down and rest. His need for sleep during the daytime has increased to 2-3 hours. Combination of fatigue and weakness was particularly bad on January 20, 2019. While sitting, he became short of breath and diaphoretic and felt bad. He has to lay down for about 2-3 hours. He felt better this morning. Eventually, he came to the clinic on a scheduled appointment. He was found to be panting and diaphoretic while sitting in a chair at clinic. The nurse doing the vitals could not measure a vital. His vitals were initially found in his right arm at 80/60 and this was confirmed with Doppler of the left arm at 80/60. The patient's did say for the last several days that he has a progressive decrease in blood pressure at home. They worsened into the 80s at home also. The patient was tachypneic and fatigued. His BiV AICD was also interrogated. It show existence of multiple PVCs that prevented BiV pacing. Directly palpating the pulse showed that his effective pulse rate at times could be low as 36. His STATE APPELLATE CLERK-D was adjusted. The different algorithm such as atrial pacing, increasing rate and RV adjustment was attempted. The best combination was increasing his lower rate from 60 beats per minute to 75 beats per minute, did regain some better mentation and energy. His systolic blood pressure remains well below 90. He then was transported to the emergency department for admission to the CCU. PAST MEDICAL HISTORY: 1. Heart failure with reduced ejection fraction due to nonischemic cardiomyopathy. Transthoracic echocardiogram done on December 23, 2018 show LVIDD of 7.8 cm and an ejection fraction at 15%. He also showed moderate mitral regurgitation. He did show a normal right ventricular size and normal right ventricular function with TAPSE of 1.9 cm. His catheterization on June 03, 2016 showed a right-dominant organization. There were no significant stenosis in left main, left anterior descending, left circumflex and right coronary artery. Thus, there is no significant coronary artery disease. These combination define his nonischemic cardiomyopathy. 2. History of nonsustained ventricular tachycardia. At one stretch between October 2018 and November 2018, he had 20 runs of nonsustained VT, but the longest run was only 8 beats. The shortest run when it appeared was 4 beats. 3. Hypertension. 4. COPD. 5. Hyperlipidemia. SOCIAL HISTORY: He was a smoker. He smoked from age 13 to age 63. He did stop smoking in 2018; however, he stopped actually smoking in 2019. His last cigarette was in October 2018. Alcohol use: He denies any alcohol use. Illicit drug use: He denies any illicit drug use. He is to one of 47 years. 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 His father of an aneurysm at uncertain age. His mother of a myocardial infarction at age 56. He also had a brother who of either myocardial infarction or pulmonary embolism at age 45. REVIEW OF SYSTEMS: GENERAL: Fatigue, weak, however, he denies fever and chills or productive cough. HEENT: There is no change in vision, hearing, or swallowing. PULMONARY: Dyspnea on exertion and tachypneic at rest. CARDIOVASCULAR: See HPI. GI: See HPI. He denied constipation, diarrhea, and blood in stool. : There is no difficulty with urination. There are no symptoms of bladder infection. MUSCULOSKELETAL: He said he is weak. INTEGUMENT: There are no new lesions or rashes. NEUROLOGIC: There are no focal deficits. PSYCHOLOGICAL: He is anxious about the whole process, but he wants to live. ALLERGIES: CODEINE AND PENICILLIN. OUTPATIENT CARDIAC MEDICATIONS: At the time of the visit. 1. Carvedilol 12.5 mg b.i.d. 2. Entresto at 24/26 combination twice a day. 3. Spironolactone 25 mg daily. 4. Lasix was self titrated up to 40 mg 3 times per day. He said he increasingly needed more and more Lasix to keep him at 148 pounds because he also has been getting more fluid lately. PHYSICAL EXAMINATION: Took place at clinic before going to the ER. VITAL SIGNS: Heart rate paced at 75 but there is still occasional gaps due to PVC inhibiting pacing. Blood pressure is 80/60 measured several times. GENERAL: The patient is slow to respond, looks ashen. HEENT: Show EOMI, PERRL. His oropharynx is benign. There is a moist mucosa. There is no erythema, no exudate. JVP is about 11 cm with positive hepatojugular reflux. PULMONARY: There is good air movement in bilateral upper doe; however, there is presence of crackles at bilateral lower bases. CARDIAC: Combination of irregular rhythm most likely multiple PVCs, S1/S2, there is 2/6 holosystolic murmur best heard at the apex with radiation to the left axilla. His PMI is inferiorly and laterally displaced at about 7th intercostal space lateral to the mid clavicular line. ABDOMEN: Soft and nontender; however, extended, possibly ascites. He said his abdomen has been increasing in girth in the last 2 weeks. LOWER EXTREMITIES: His feet are cool to touch. There is about 0.5 cm pitting edema from his feet to above his ankles. His STATE APPELLATE CLERK-D was interrogated. - There is no recent events of VTach nor VF. - There are PVCs. - EGM shows that he does have sinus rhythm that is overridden by PVCs. The thoracic impedance has decreased significantly in the last week, thus indicating increasing pulmonary edema. His labs show his creatinine increased from his baseline to 1.32, current about 2.3. Thus, he has an organ damage from low blood pressure. ASSESSMENT: A 63-year-old gentleman now resides in [place] Heart Association stage D and likely [place] heart Association class 3B or 4 heart failure with reduced ejection fraction due to nonischemic cardiomyopathy. He has both systolic and diastolic dysfunction. This recent drop in blood pressure could be due to worsening of his heart failure. There has been no change in his medication, rather he became intolerant to it. He has symptoms of progressive fatigue, difficulty in mentation, loss of appetite, early satiety, and biochemical evidence was creatinine increasing from 1.3 to 2.3, all pointing to end organ damage due to low cardiac output. He was scheduled to be admitted to [facility] on January 31, 2019, for inpatient workup for left ventricular assist device implantation starting as destination therapy with potential bridge to transplant in the future. Due to his smoking status, he will have to wait 6-month, likely being on the LVAD to qualify for transplant. With left ventricle assist device implant already being considered, it is most reasonable to work on a transfer from [facility] to [facility]. In the meanwhile, we will need to stabilize this patient and recover his kidney function. PLAN OF TREATMENT: 1. Admit the patient to CCU. 2. Start dobutamine at 2.5 mcg/kg per minute. Increase to 5 mcg/kg per minute if there is no ventricular tachycardia. May slowly titrate at 1 mcg/kg per minute to maintain MAP above 75. However, do not go above 12 mcg/kg per minute. This is meant to recover kidney function. 3. Combination of elevated jugular venous pulses and surprisingly high crackles in lung showed that he is getting pulmonary edema. Once the blood pressure is above 100 mmHg, please give Lasix 40 mg IV one dose. We will need to follow this situation and provide the next dose as needed. 4. Please do amiodarone protocol because he has history of ventricular tachycardia. This consisted of 150 mg loading dose slowly over 1 hour. Followed by 1 mg/minute over the next 6 hours followed by 0.5 mg/minute for the last 18 hours. After that, we can transition to oral amiodarone 200 mg twice a day. 5. For now, we will need to stop carvedilol, Entresto, and also spironolactone. 6. Please implement potassium and magnesium replacement protocol. 7. We have to contact [facility]. We will need to work on a hospital to hospital transfer. This will provide the most efficient way to help the patient to get better. [facility] has already seen the patient and has scheduled him for a 4-day admission in the near future. This will be an earlier entry point. We hope to be able to recover his renal function and stabilize him. At that point , he will be ready for transfer. It has been a pleasure taking care of Mr. Thompson. Thank you for the consultation request. If you have any questions, please give me a call. Job ID: [id number] MTDD
[2019-01-22] MEDS ORDERED: Furosemide 100 MG/10 ML VIAL IVPB SCH (07:30)
[2019-01-22] MEDS ORDERED: Enoxaparin Sodium 30 MG/0.3 ML SYRINGE SC SCH (09:00)
[2019-01-22] MEDS: Heparin 5,000 UNITS/ML VIAL SC SCH ×3 (09:36→20:37)
--- NOTE | 2019-01-22 11:19 | PRG ---
DATE OF SERVICE: 01/22/2019 This is an Advanced Heart Failure Cardiology Consulting Service. SUBJECTIVE: Mr. Thompson had a pretty good day. With dobutamine, he was able to regain his pressure. He was able to regain mentation, everyone noticed, especially the that he has much better color. He required up to 7 mcg/kg per minute IV GTT to maintain MAP close to about 75. This morning, with improving in renal function, dobutamine was able to be titrated down slightly to 5 mcg/kg per minute to maintain a MAP at about 70. He said he does still better, but he still need to sleep at about 30-degrees angle. He does not have PND. REVIEW OF SYSTEMS: GENERAL: His fatigue is better. He denies fever or chills. There is some cough. HEENT: There is no change in vision, hearing, or swallowing. PULMONARY: His shortness of breath is better. He is no longer tachypneic. Cardiovascular. There is no PND. There is no palpitation. There is no syncope. GI: He is able to the eat. : He is stable to urinate. There is no pain with urination. However, he reports small amount with IV Lasix. INTEGUMENT: There is no skin breakdown. NEUROLOGIC: There are no new focal deficits. PSYCHOLOGIC: He is a bit anxious but would like to proceed. His creatinine went from baseline of 1.2 to 2.3 due to cardiac output. When dobutamine was initiated, his kidney function improved, such that his creatinine dropped from 2.3 down to 1.5. Amiodarone was also started due to history of nonsustained ventricular tachycardia and with the initiation of dobutamine, this is to prevent that from happening. Since starting the amiodarone, his PVC has quieted and there is no arrhythmia by telemetry from overnight. CARDIAC MEDICATIONS: 1. Dobutamine currently at 5 mcg/kg per minute IV GTT. 2. Amiodarone drip currently at 0.5 mg/minute. PHYSICAL EXAMINATION: Telemetry was reviewed. He has some PVCs overnight, but only a very few. There is no ventricular tachycardia. He is mostly paced. Nearly 75 beats per minute. VITAL SIGNS: Heart rate 75, blood pressure 103/59. GENERAL: He is alert and conversational, much more energetic, has a good color this morning comparison to last night. HEENT: Shows EOMI, PERRL. Oropharynx benign. There is moist mucosa without erythema, no exudate. NECK: His JVP is about 11 cm. LUNGS: He still has bilateral crackles in lower lung quarters on both sides. CARDIAC: Showed regular rhythm with occasional irregularity, there is S1 and S2 , there is 2/6 holosystolic murmur best heard at the apex radiation to the left axilla. His PMI is inferiorly and laterally displaced about the 7th intercostal space, lateral to the midclavicular line. ABDOMEN: Soft and nontender, however, + fluid waves- possibly ascites. EXTREMITIES: Lower extremities, feet are much warmer to touch. There is about 0.5 cm pitting edema from feet to just above the ankles. SIGNIFICANT LABORATORY VALUES: Creatinine has decreased from 2.3 down to 1.53, however, his sodium has decreased down to 133. ASSESSMENT: A 63-year-old gentleman, who resides in [place] Heart Association stage D, [place] Heart Association class 3b heart failure with reduced ejection fraction. He has both systolic and diastolic dysfunctions. This is a nonischemic cardiomyopathy. He has recovered nicely with dobutamine. He will likely need inotropic support for left ventricular assist device evaluation. He also has increasing volume as seen by his elevating JVP, crackles in the lung, and also decreasing sodium concentration. So, more aggressive active diuresis is needed. In the meantime, his renal function is improved. It should be stable for transfer to [facility]. RECOMMENDATIONS: 1. Keep dobutamine drip at 5 mcg/kg per minute for now. Try to maintain a MAP at 70 mmHg. If it drops, may titrate up dobutamine. However, do not go above 12 mcg/kg per minute. If difficulty maintaining the patient's pressure, please call. 2. Please give Lasix 60 mg IV b.i.d. he will need this for decongestion. 3. Continue with the amiodarone drip. Once his drip is completed, convert to oral amiodarone at 400 mg twice a day. 4. Please assist the patient and family in preparation for transfer to [facility] for evaluation of left ventricular assist device implantation. It has been a pleasure taking care of Mr. Thompson. Thank you for the consult. If you have any questions, please give me a call. Job ID: [id number] MTDD
--- NOTE | 2019-01-22 14:47 | PDOC.HOSPP ---
- Subjective Encounter Date: 01/22/19 Encounter Time: 10:45 Subjective: Expresses no complaint.. No SOB. - Objective Vital Signs & Weight: Vital Signs (12 hours) Temp Pulse Ox 01/22/19 12:00 97.7 F 01/22/19 08:00 98.2 F 95 01/22/19 07:27 95 01/22/19 04:00 98.3 F Weight Weight 157 lb 1.6 oz Most Recent Monitor Data Heart Rate from ECG 80 NIBP 127/76 NIBP BP-Mean 93 Respiration from ECG 18 SpO2 95 I&O: 01/21/19 01/22/19 01/23/19 06:59 06:59 06:59 Intake Total 814 120 Output Total 1000 650 Balance -186 -530 Result Diagrams: 01/22/19 05:11 01/22/19 05:11 Hospitalist ROS - Medication Medications: Active Medications Generic Name Dose Route Start Last Admin Trade Name Freq PRN Reason Stop Dose Admin Furosemide 60 mg 01/22/19 07:30 01/22/19 09:36 Lasix IVPB 60 mg 0730 NICHOLAS Administration Heparin Sodium (Porcine) 5,000 units 01/21/19 21:00 01/22/19 09:36 Heparin SC 5,000 units TID NICHOLAS Administration Dobutamine HCl/Dextrose 250 mls @ 0 mls/hr 01/21/19 21:45 01/22/19 03:07 Dobutamine 500 Mg/250 Ml IVPB 250 mls INF NICHOLAS Administration Protocol As Directed Amiodarone HCl 450 mg/ 259 mls @ 0 mls/hr 01/21/19 21:45 01/21/19 21:45 Miscellaneous Medication 1 IVPB 259 mls each/ Dextrose/Water INF NICHOLAS Administration Protocol As Directed Sodium Chloride 10 ml 01/22/19 09:00 01/22/19 09:37 Flush - Normal Saline IVF 10 ml Q12HR NICHOLAS Administration - Exam General Appearance: NAD Neck: supple Heart: RRR Respiratory: CTAB Gastrointestinal: soft Extremities: no edema Neurological: no focal deficits Hosp A/P (1) Hypotension Status: Acute (2) CHF (congestive heart failure) Code(s): I50.9 - HEART FAILURE, UNSPECIFIED Status: Acute (3) Acute kidney injury superimposed on CKD Code(s): N17.9 - ACUTE KIDNEY FAILURE, UNSPECIFIED; N18.9 - CHRONIC KIDNEY DISEASE, UNSPECIFIED Status: Acute (4) COPD (chronic obstructive pulmonary disease) Status: Acute - Plan Patient was seen by cardiology. Has severe cardiomyopathy.. Being transfered to [place]..
[2019-01-22] MEDS: Furosemide 100 MG/10 ML VIAL IVPB SCH (15:14)
[2019-01-22] MEDS: Temazepam 15 MG CAP PO PRN (20:44)
[2019-01-22] MEDS ORDERED: Prevnar 13-Val Conj/PF 0.5 ML SYRINGE IM ONE (21:00)
[2019-01-22] MEDS: Amiodarone 450 MG, Admixture Fee 1 EACH in Dextrose 5% in Water 250 ML IVPB SCH (21:19)
--- NOTE | 2019-01-23 02:20 | DIS ---
DATE OF ADMISSION: 01/21/2019 DATE OF DISCHARGE: 01/22/2019 ADMITTING DIAGNOSES: Congestive heart failure, acute on chronic kidney disease, chronic obstructive pulmonary disease, elevated troponin, low blood pressure. SHEET METAL INSULATOR: Dr. Kj Zamora. PROCEDURE: Chest x-ray, EKG. COURSE OF HOSPITALIZATION: Unchanged. The patient is being transferred to [place] for possible heart transplant. TRANSFER MEDICATION: Please refer to transfer medication reconciliation sheet. PHYSICAL EXAMINATION: Please refer to the patient's medical record progress note section. DISCHARGE TIME: 32 minutes. Job ID: [id number]
[2019-01-23] MEDS: Furosemide 100 MG/10 ML VIAL IVPB SCH ×3 (06:17→16:26)
[2019-01-23] MEDS ORDERED: Potassium Chloride 20 MEQ TAB PO SCH (09:00)
[2019-01-23] MEDS ORDERED: Milrinone 20 MG in Sodium Chloride 0.9% 100 ML IVPB SCH (09:00)
[2019-01-23 09:05] LABS: #Eosinphils 0.1 thou/uL (0.0-0.7); #Lymphocytes 1.6 thou/uL (1.20-3.40); #Monocytes 0.8 thou/uL (0.11-0.59); #Neutrophils 6.2 thou/uL (1.40-6.50); %Basophils 0.3 % (0.0-1.0); %Eosinophils 1.7 % (0.0-10.0); %Lymphocytes 18.8 % (21.0-51.0); %Monocytes 8.6 % (0.0-10.0); %Neutrophils 70.7 % (42.0-75.0); Mean Corpuscular HGB CONC 34.9 g/dL (32.0-36.0); Mean Corpuscular Hemoglobin 31.8 pg (27.0-31.0); Mean Corpuscular Volume 91.2 fL (78.0-98.0); Mean Platelet Volume 6.8 fL (7.4-10.4); Platelet Count 168 thou/uL (130-400); Red Blood Cell (RBC) Count 3.77 mill/uL (4.70-6.10); White Blood Cell (WBC) Count 8.7 thou/uL (4.8-10.8)
[2019-01-23 09:27] LABS: Anion Gap 14 mmol/L (10-20); BUN (Urea Nitrogen) 26 mg/dL (8.4-25.7); Calc. Creatinine Clearance 50 mL/min (70-130); Carbon Dioxide 28 mmol/L (23-31); Chloride 94 mmol/L (98-107); Estimated GFR-MDRD 47; Glucose 195 mg/dL (80-115); Magnesium 2.1 mg/dL (1.6-2.6); Potassium 3.7 mmol/L (3.5-5.1); Sodium 132 mmol/L (136-145)
[2019-01-23] MEDS: Amiodarone 200 MG TAB PO SCH ×2 (09:40→20:42)
[2019-01-23] MEDS: Heparin 5,000 UNITS/ML VIAL SC SCH ×3 (09:41→20:42)
--- NOTE | 2019-01-23 10:04 | CON ---
DATE OF CONSULTATION: 01/23/2019 HISTORY OF PRESENT ILLNESS: Mr. Thompson continues to improve. He fell that he had increased energy. He is able to stand and walk a few steps without difficulties. His orthostatic hypotension that he has experienced before seemed to be gone. He said he is responding well to Lasix 60 mg IV twice a day. However, overnight, he did have some short of breath and cough. Overall, he believes he is doing better. REVIEW OF SYSTEMS: GENERAL: He has energetic today. He denies fever and chills. HEENT: There is no change in vision, hearing or swallowing. PULMONARY: Please see HPI. CARDIOVASCULAR: There is no PND. There are no palpitations. No syncope. GI: He is able to the eat better. : He is able to urinate. There is no pain with urination. There are no signs of bladder infection. JOINTS: He does not complain of any joint pains. INTEGUMENT: There is no new skin breakdown. NEUROLOGIC: There are no new focal deficits. PSYCHOLOGIC: He is not depressed, less anxious. He was able to sleep well last night with temazepam. There is no new labs this morning. We will get some new labs and adjust medications as needed. Telemetry was reviewed. He is mainly paced at 75 at rest but that during the day this may peak upon 90. There is once nonsustained VT about 5 beats. He was asymptomatic at the time. PHYSICAL EXAMINATION: VITAL SIGNS: Heart rate 81, blood pressure 130/73. This is the highest blood pressure I have ever seen in him. GENERAL: He is alert and conversational, looking much better perfused today, was looking much better today. HEENT: Showed EOMI, PERRL. Oropharynx benign. He has moist mucosa. There is no erythema, no exudate. NECK: His JVP is about 10 cm. LUNGS: Clear to auscultation bilaterally. His bilateral crackles are now gone. This is the best I have heard in several days. HEART: Regular rate and rhythm, S1, S2. There is 2/6 holosystolic murmur best heard at the apex with radiation to the left axilla. His PMI is inferiorly and laterally displaced at about 7th intercostal space lateral to the midclavicular line. ABDOMEN: Soft, nontender. There is probably some ascites. EXTREMITIES: Lower extremities are warm and well perfused today, this is a good change. He has good pulses today. Thi is also a good change. CURRENT CARDIAC MEDICATIONS: 1. Dobutamine drip at 5 mcg/kg/minute IV GTT. 2. Amiodarone is at 0.5 mg/minute. 3. He has been receiving Lasix 60 mg IV twice a day. ASSESSMENT: A 63-year-old gentleman who remains [place] Heart Association stage D and [place] heart association class 3B heart failure with reduced ejection fraction. This is a nonischemic cardiomyopathy with both systolic and diastolic dysfunctions. Today, he seemed to have regained his vascular tone. With sustain blood pressure, we can attempt a switch from dobutamine to Milrinone. He can last longer on Milrinone. Even with Lasix 60 mg IV twice a day, he is only net negative of 100 mL. We will need to watch this, so I may need to increase diuresis as needed. He is in process of being evaluated by [facility] for left ventricle assist device implantation. He will start as destination therapy. After passage of time, he can be qualified as a bridge to transplant if he can document there is no cotinine (nicotine by product) in urine which is evident as nonsmoking for 6 months. He was scheduled for admission to [facility] on January 31. With his recent decompensation and needing inotropic support, it is best that we transfer him to [facility] at the first opportune time. I understand that [facility] is waiting for a bed to be opening up. RECOMMENDATIONS: 1. Decrease dobutamine to 4 mcg/kg/minute. 2. Start Milrinone 0.125 mcg/kg/minute. 3. After 1 hour, if the systolic blood pressure remains above 95, decrease dobutamine to 2 mcg/kg/minute and increase Milrinone to 0.25 mcg/kg/minute. 4. After one more hour if the systolic blood pressure remains above 95 mmHg, increase Milrinone to 0.375 mcg/kg/minute and stop dobutamine altogether. 5. Start amiodarone 400 mg p.o. b.i.d. 6. Stop amiodarone IV drip 1 hour after amiodarone is given. 7. Please do stat labs of BMP, magnesium, and CBC. We will need to adjust the medications based on these numbers. 8. Please give him K-Dur 20 mEq by mouth one dose now. 9. We will inform [facility] of the current progress. We will still work on a transfer for him to go to [facility]. It has been a pleasure taking care of Mr. Thompson. Thank you for the consultation. If you have any questions, please give me a call. Job ID: [id number] MTDD
--- NOTE | 2019-01-23 12:29 | PDOC.HOSPP ---
- Subjective Encounter Date: 01/23/19 Encounter Time: 11:00 Subjective: No new complaint.. Feels well. - Objective Vital Signs & Weight: Vital Signs (12 hours) Temp 01/23/19 12:00 98.1 F 01/23/19 07:00 97.9 F 01/23/19 04:00 98.0 F Weight Weight 158 lb 15.253 oz Most Recent Monitor Data Heart Rate from ECG 96 NIBP 118/74 NIBP BP-Mean 88 Respiration from ECG 20 SpO2 91 I&O: 01/22/19 01/23/19 01/24/19 06:59 06:59 05:59 Intake Total 814 1423 200 Output Total 1000 1300 750 Balance -186 123 -550 Result Diagrams: 01/23/19 08:57 01/23/19 08:57 Hospitalist ROS - Medication Medications: Active Medications Generic Name Dose Route Start Last Admin Trade Name Freq PRN Reason Stop Dose Admin Amiodarone HCl 400 mg 01/23/19 09:00 01/23/19 09:40 Cordarone PO 02/02/19 09:01 400 mg BID NICHOLAS Administration Furosemide 60 mg 01/22/19 14:00 01/23/19 06:17 Lasix IVPB 60 mg 0600,1400 NICHOLAS Administration Heparin Sodium (Porcine) 5,000 units 01/21/19 21:00 01/23/19 09:41 Heparin SC 5,000 units TID NICHOLAS Administration Milrinone Lactate 20 mg/ 120 mls @ 0 mls/hr 01/23/19 09:00 01/23/19 09:42 Sodium Chloride IVPB 120 mls INF NICHOLAS Administration Protocol Titrate Sodium Chloride 10 ml 01/22/19 09:00 01/23/19 09:42 Flush - Normal Saline IVF Not Given Q12HR NICHOLAS Temazepam 15 mg 01/21/19 21:39 01/22/19 20:44 Restoril PO 15 mg HS PRN Administration Insomnia - Exam General Appearance: NAD Neck: no JVD Heart: RRR Respiratory: CTAB Gastrointestinal: soft Extremities: no edema Neurological: no focal deficits Hosp A/P (1) Hypotension Status: Acute Plan: BP is much better today. (2) CHF (congestive heart failure) Code(s): I50.9 - HEART FAILURE, UNSPECIFIED Status: Acute Plan: Compensated.. (3) Acute kidney injury superimposed on CKD Code(s): N17.9 - ACUTE KIDNEY FAILURE, UNSPECIFIED; N18.9 - CHRONIC KIDNEY DISEASE, UNSPECIFIED Status: Acute Plan: Improving.. (4) COPD (chronic obstructive pulmonary disease) Status: Acute Plan: Stable... - Plan Has severe cardiomyopathy. Awaiting transfer to [place]. f/u with cardiology.
[2019-01-23] MEDS: Acetaminophen 325 MG TAB PO PRN (15:11)
[2019-01-23] MEDS ORDERED: Aspirin 325 MG TAB PO SCH (15:30)
[2019-01-23] MEDS ORDERED: DOBUTamine 500 mg/250 ml 250 ML IVPB SCH (15:30)
[2019-01-23] MEDS: Temazepam 15 MG CAP PO PRN (20:43)
[2019-01-24 05:16] LABS: Anion Gap 14 mmol/L (10-20); BUN (Urea Nitrogen) 25 mg/dL (8.4-25.7); Calc. Creatinine Clearance 52 mL/min (70-130); Calcium 9.2 mg/dL (7.8-10.44); Carbon Dioxide 26 mmol/L (23-31); Chloride 97 mmol/L (98-107); Estimated GFR-MDRD 48; Glucose 126 mg/dL (80-115); Magnesium 2.2 mg/dL (1.6-2.6); Potassium 4.2 mmol/L (3.5-5.1); Sodium 133 mmol/L (136-145)
[2019-01-24] MEDS: Furosemide 100 MG/10 ML VIAL IVPB SCH ×3 (06:02→18:30)
[2019-01-24 09:26] LABS: #Eosinphils 0.4 thou/uL (0.0-0.7); #Lymphocytes 2.1 thou/uL (1.20-3.40); #Neutrophils 6.8 thou/uL (1.40-6.50); %Basophils 0.1 % (0.0-1.0); %Eosinophils 3.9 % (0.0-10.0); %Lymphocytes 20.2 % (21.0-51.0); %Monocytes 9.3 % (0.0-10.0); %Neutrophils 66.5 % (42.0-75.0); Hemoglobin 12.8 g/dL (14.0-18.0); Mean Corpuscular HGB CONC 35.4 g/dL (32.0-36.0); Mean Corpuscular Hemoglobin 32.3 pg (27.0-31.0); Mean Corpuscular Volume 91.2 fL (78.0-98.0); Mean Platelet Volume 6.7 fL (7.4-10.4); Platelet Count 195 thou/uL (130-400); RBC Distribution Width 12.2 % (11.5-14.5); Red Blood Cell (RBC) Count 3.98 mill/uL (4.70-6.10); White Blood Cell (WBC) Count 10.2 thou/uL (4.8-10.8)
[2019-01-24] MEDS: Potassium Chloride 20 MEQ TAB PO SCH (10:17)
[2019-01-24] MEDS: Aspirin Chewable 81 MG TAB PO SCH (10:17)
[2019-01-24] MEDS: Heparin 5,000 UNITS/ML VIAL SC SCH ×3 (10:17→21:24)
[2019-01-24] MEDS: Amiodarone 200 MG TAB PO SCH ×2 (10:17→21:23)
[2019-01-24] MEDS: Acetaminophen 325 MG TAB PO PRN ×2 (10:18→21:23)
[2019-01-24] MEDS: Milrinone 20 MG in Sodium Chloride 0.9% 100 ML IVPB SCH (10:18)
--- NOTE | 2019-01-24 10:30 | PDOC.HOSPP ---
- Subjective Encounter Date: 01/24/19 Encounter Time: 07:40 Subjective: Expresses no complaint. feels better. - Objective Vital Signs & Weight: Vital Signs (12 hours) Temp 01/24/19 03:00 98.1 F Weight Weight 160 lb 11.472 oz Most Recent Monitor Data Heart Rate from ECG 78 NIBP 126/77 NIBP BP-Mean 93 Respiration from ECG 17 SpO2 94 I&O: 01/23/19 01/24/19 01/25/19 07:59 06:59 06:59 Intake Total Output Total Balance Result Diagrams: 01/24/19 09:09 01/24/19 04:29 Hospitalist ROS - Medication Medications: Active Medications Generic Name Dose Route Start Last Admin Trade Name Freq PRN Reason Stop Dose Admin Acetaminophen 650 mg 01/21/19 17:20 01/23/19 15:11 Tylenol PO 650 mg Q4H PRN Administration Headache/Fever/Mild Pain (1-3) Amiodarone HCl 400 mg 01/23/19 09:00 01/23/19 20:42 Cordarone PO 02/02/19 09:01 400 mg BID NICHOLAS Administration Heparin Sodium (Porcine) 5,000 units 01/21/19 21:00 01/23/19 20:42 Heparin SC 5,000 units TID NICHOLAS Administration Dobutamine HCl/Dextrose 250 mls @ 0 mls/hr 01/23/19 15:30 01/24/19 02:46 Dobutamine 500 Mg/250 Ml IVPB 250 mls INF NICHOLAS Administration Protocol As Directed Sodium Chloride 10 ml 01/22/19 09:00 01/23/19 20:43 Flush - Normal Saline IVF 10 ml Q12HR NICHOLAS Administration Temazepam 15 mg 01/21/19 21:39 01/23/19 20:43 Restoril PO 15 mg HS PRN Administration Insomnia - Exam General Appearance: awake alert Neck: no JVD Heart: RRR Respiratory: CTAB, rhonchi Gastrointestinal: soft Extremities: no edema Neurological: no focal deficits Hosp A/P (1) Hypotension Status: Acute Plan: BP satisfactory. (2) CHF (congestive heart failure) Code(s): I50.9 - HEART FAILURE, UNSPECIFIED Status: Acute Plan: f/u chest x-ray.. (3) Acute kidney injury superimposed on CKD Code(s): N17.9 - ACUTE KIDNEY FAILURE, UNSPECIFIED; N18.9 - CHRONIC KIDNEY DISEASE, UNSPECIFIED Status: Acute Plan: Kidney function stable... f/u BMP (4) COPD (chronic obstructive pulmonary disease) Status: Acute Plan: stable.. - Plan Has severe cardiomyopathy. Awaiting transfer to [place]. f/u with cardiology. continue current management.
--- NOTE | 2019-01-24 11:02 | PRG ---
DATE OF SERVICE: 01/24/2019 SERVICE: From [facility]. SUBJECTIVE: Last 24 hour events. The patient was doing very well yesterday morning. An attempt of switching from dobutamine to milrinone was made. Milrinone was added 0.125 mcg/kg/min in parallel with dobutamine. Over a period of 1 hour at a time, dobutamine was slowly titrated down and milrinone was slowly titrated up. Over a period of 4 hours, milrinone reached at 0.375 mcg/kg/min and then dobutamine was titrated to off. Unfortunately, this did not work well. Thus, the patient' s blood pressure dropped down to 90 and below. He felt very very weak. He said he could not even move both arms. Consequently, the milrinone was stopped and dobutamine was restarted eventually settled down at 4 mcg/kg/min. Due to elevation in blood pressure early this morning, dobutamine was titrated back down. The patient said he was really hungry. His came and visited him about 5 o'clock in the morning. She brought in a [employer]. He ate it and said it tasted very well. Looking at a monitor sometime after his blood pressure went up after eating this high salt load. REVIEW OF SYSTEMS: GENERAL: He is less energetic due to low blood pressure episode yesterday. He denies fever or chills. HEENT: There is no change in vision, hearing, or swallowing. PULMONARY: He does not complain of a productive cough. CARDIOVASCULAR: There is no PND. There is no palpitation. Please see HPI for about low blood pressure. GI: He did not want to eat yesterday, but he has had return of appetite this morning. : He is able to urinate. There is no pain with urination. There is no sign of bladder infection. MUSCULOSKELETAL: There is no complaint of joint pain. INTEGUMENT: There is no new breakdown. NEUROLOGIC: There are no new focal deficits. PSYCHOLOGICAL: He is not depressed. MEDICATIONS: Active cardiac medications include: 1. Amiodarone 400 mg p.o. b.i.d. 2. Dobutamine at 2.5 mcg/kg/min. 3. Furosemide 60 mg IV b.i.d. 4. An aspirin 81 mg daily. PHYSICAL EXAMINATION: Telemetry review, he only has one 3 beats in a row PVCs. There was no more NSVT over the last 24 hours. VITAL SIGNS: Heart rate 82, blood pressure 125/79 this morning. GENERAL: He is alert and conversational, little bit short of breath, having difficulty to sustain long sentences. He is looking a little bit weak and worse today. HEENT: EOMI. RIKKI. Oropharynx benign. He has moist mucosa. There is no erythema, no exudate. NECK: His JVP is not elevated up to his earlobe. This is increased from yesterday. LUNGS: Still clear to auscultation, but there are no basilar crackles at this point. HEART: Regular rate and rhythm. S1 and S2. There is a 3/6 holosystolic murmur best heard at apex with radiation to the left axilla. His mitral murmur is a bit worse today. His PMI is inferiorly and laterally displaced at 7th intercostal space lateral to the midclavicular line. ABDOMEN: Soft, nontender. There is probably some ascites. His abdomen seemed to be little bit larger today. EXTREMITIES: Lower extremities are warm, well perfused. Positive dorsalis pedis pulses bilaterally. There seemed to be some discrepancy between weight and I/O. His weight has been increasing, but his net I/O is -460 mL. LABORATORY VALUES: Sodium improved slightly from 132 to 133, his creatinine is generally stable and it decreased from 1.49 down to 1.47. His procalcitonin level is at 0.87. ASSESSMENT: A 63-year-old gentleman, who remains in [place] Heart Association stage D and [place] Heart Association class 3B heart failure with reduced ejection fraction. This is a nonischemic cardiomyopathy with both systolic and diastolic dysfunction. It is a poor prognosis showing that he is unable to tolerate the switch from dobutamine to milrinone. This suggests that his myocardium, cardiac myocytes do not have sufficient cyclic AMP in intracellular stores. He relies on external stimulation of beta-1 receptor. This argues for definite need to have a left ventricular assist device. He cannot survive very long on dobutamine. He also has increased volume due to dietary indiscretion. So more diuretics are needed today. Continued dobutamine will prevent endocytosis and destruction of the beta-1 receptor causing less cyclic AMP. We will restart milrinone to preserve cyclic AMP but only at a low dose. That will allow his dobutamine to work more effectively. We are still awaiting on transfer from [facility] to [facility]. This is for evaluation and probable implantation of left ventricular assist device as destination therapy. If he can prove not to be smoking for 6 months, then he will qualify for heart transplant. Currently, [facility] is full. They are awaiting for bed to be open to transfer him. RECOMMENDATIONS: 1. Leave dobutamine 2.5 mcg/kg/min. May titrate dobutamine up to keep the mean arterial pressure to above 70. May titrate down dobutamine if systolic blood pressure goes above 130. 2. Start milrinone at 0.125 mcg/kg/min. If his systolic blood pressure falls below 92 or if the patient becomes symptomatic, please stop the milrinone. 3. Increase the frequency of Lasix 60 mg IV to three times today. This is to occur at 6:00 a.m., noon, and 6:00 p.m. This will give him one day of extra diuresis. Tomorrow, we will go back down to twice a day, but with the addition of spironolactone. Please do a followup procalcitonin level. The current was indeterminate. We will also watch for blood and urine culture results. 4. We will continue to work with [facility] for his transfer for potential left ventricular assist device implantation. It has been a pleasure taking care of Mr. Thompson. Thank you for the consultation request. If you have any questions, please give me a call. Job ID: [id number] MTDD
[2019-01-24] MEDS ORDERED: Vancomycin HCl 1.5 GM in Sodium Chloride 0.9% 250 ML 300 ML IVPB SCH (18:00)
[2019-01-24] MEDS: Temazepam 15 MG CAP PO PRN (22:39)
[2019-01-25] MEDS: Acetaminophen 325 MG TAB PO PRN (04:38)
[2019-01-25 05:33] LABS: #Eosinphils 0.5 thou/uL (0.0-0.7); #Lymphocytes 1.9 thou/uL (1.20-3.40); #Neutrophils 7.7 thou/uL (1.40-6.50); %Basophils 0.2 % (0.0-1.0); %Eosinophils 4.4 % (0.0-10.0); %Lymphocytes 17.1 % (21.0-51.0); %Monocytes 8.7 % (0.0-10.0); %Neutrophils 69.7 % (42.0-75.0); Hemoglobin 11.5 g/dL (14.0-18.0); Mean Corpuscular HGB CONC 33.8 g/dL (32.0-36.0); Mean Corpuscular Volume 91.7 fL (78.0-98.0); Mean Platelet Volume 6.8 fL (7.4-10.4); Platelet Count 189 thou/uL (130-400); RBC Distribution Width 12.1 % (11.5-14.5); Red Blood Cell (RBC) Count 3.72 mill/uL (4.70-6.10)
[2019-01-25 05:50] LABS: Anion Gap 14 mmol/L (10-20); BUN (Urea Nitrogen) 27 mg/dL (8.4-25.7); Calc. Creatinine Clearance 48 mL/min (70-130); Calcium 9.3 mg/dL (7.8-10.44); Carbon Dioxide 27 mmol/L (23-31); Chloride 96 mmol/L (98-107); Estimated GFR-MDRD 45; Glucose 174 mg/dL (80-115); Potassium 3.8 mmol/L (3.5-5.1); Sodium 133 mmol/L (136-145)
[2019-01-25] MEDS: Milrinone 20 MG in Sodium Chloride 0.9% 100 ML IVPB SCH (06:00)
[2019-01-25] MEDS ORDERED: Furosemide 100 MG/10 ML VIAL IVPB SCH (06:00)
[2019-01-25 06:36] VITALS: BMI 22.8
[2019-01-25] MEDS ORDERED: Potassium Chloride 20 MEQ TAB PO SCH (07:30)
[2019-01-25] MEDS ORDERED: Spironolactone 25 MG TAB PO SCH (08:00)
[2019-01-25] MEDS: Potassium Chloride 20 MEQ TAB PO SCH (08:40)
[2019-01-25] MEDS: Heparin 5,000 UNITS/ML VIAL SC SCH (08:41)
[2019-01-25] MEDS: Aspirin Chewable 81 MG TAB PO SCH (08:41)
[2019-01-25] MEDS: Amiodarone 200 MG TAB PO SCH (08:41)
--- NOTE | 2019-01-25 09:09 | PRG ---
DATE OF SERVICE: 01/25/2019 HISTORY OF PRESENT ILLNESS: Mr. Thompson had a pretty good day yesterday. He was able to walk in place several times. He felt good in general. One out of 2 blood cultures came back and positive for Staphylococcus epidermidis. Due to elevated white blood cell count about 10,000-12,000 range and also 1 bout of rigor, vancomycin was empirically started. This will be ongoing until second set of culture either confirmatory or showing it is not there. Overnight, he did sleep well apparently. However, he did have 4 runs of nonsustained ventricular tachycardia. He did have a rise in blood pressure to 140. Dobutamine was titrated down to 1 mcg/kg/minute while milrinone oscillating between 0.125 mcg/kg/minute to 0.25 mcg/kg/minute. This morning, he is feeling well, he is energetic, he is able to eat. REVIEW OF SYSTEMS: GENERAL: He is more energetic this morning. He denies fever or chills. HEENT: There is no change in vision, hearing, or swallowing. PULMONARY: There is no shortness of breath. He does have dyspnea on exertion still. There is no complaint of productive cough. CARDIOVASCULAR: There is no PND. There is no palpitation, even though there is NSVT on the monitor. GI: He is feeling better, able to eat today. : He is able to urinate without any problems. There are no signs or symptoms of bladder infection. MUSCULOSKELETAL: He does not complain of joint pains. INTEGUMENT: There is no new breakdown. NEUROLOGIC: There are no new focal deficits. PSYCHOLOGICAL: He is not depressed. MEDICATIONS: Current active medications include; 1. Amiodarone 400 mg twice a day. 2. Dobutamine, being titrated. 3. Furosemide 60 mg IV 3 times a day. 4. Milrinone 0.125 mcg/kg/minute. 5. Aspirin 81 mg daily. 6. Spironolactone 25 mg daily. PHYSICAL EXAMINATION: VITAL SIGNS: On review of overnight telemetry, he had 4 runs of NSVT with a long of 12 beats. Apparently, he was not asymptomatic at that time, it occurred between 2 to 4 in the morning. GENERAL: He is alert and conversational, pleasant, he is not in acute distress. The patient still is short of breath when trying to maintain long sentences. HEENT: EOMI. PERRL. Oropharynx benign. He has moist mucosa. There is no erythema and there is no exudate. NECK: His JVP is lower than yesterday about 9 cm with positive hepatojugular reflux. LUNGS: Good air movement bilaterally. Clear to auscultation bilaterally. HEART: Regular rhythm with occasional irregularity, S1 and S2, you can hear an S4 this morning. There is 2/6 holosystolic murmur near the apex with radiation to the left axilla. His murmur is less today. There are no rubs. His PMI is inferiorly and laterally displaced at 7th intercostal space lateral to the midclavicular line. ABDOMEN: Soft and nontender. Positive bowel sounds. There is probably some mild ascitic fluid, but it is less today than yesterday. EXTREMITIES: There is no edema. Warm and well perfused. Positive dorsalis pedis pulses bilaterally. It is documented at 1.7 liter negative I/O from yesterday. So, apparently Lasix 60 mg IV 3 times a day worked well. There is a slight decrease in potassium and his creatinine slightly increased from 1.47 to 1.57. ASSESSMENT: A 63-year-old gentleman remains in [place] Heart Association stage D and also [place] Heart Association class 3B heart failure with reduced ejection fraction. This is a nonischemic cardiomyopathy with both systolic and diastolic dysfunctions. He also had NSVT. He also had one out of 2 positive blood cultures for Staphylococcus epidermidis. Due to 1 bout of rigor and elevation of white cell count to 10,000-12,000 range, we have started empiric vancomycin therapy. We suspect this is a contamination. However, we will not take any chances. We have sent off second set of blood cultures already. If second set of blood cultures are negative, then we can complete a short course of antibiotics to be titrated off. In the meantime, we will attempt to make a slow switch between dobutamine to milrinone. Milrinone is less arrhythmogenic. With milrinone, he can also start beta tracy; therofore, much friendlier IV medication for him. In the meantime, we will stay in contact with [facility] to transfer him as soon as possible. RECOMMENDATIONS: 1. Increase milrinone to 0.25 mcg/kg/minute. 2. Keep dobutamine at 1 mcg/kg/minute for now. May increase as needed to keep MAP above 70. 3. Please decrease the frequency of Lasix dose to 60 mg IV b.i.d. 4. Please give him a K-Dur 20 mEq now. 5. I will talk to [employer] and decrease his lower rate down to 70, that might help him with his NSVT. 6. In the meantime, I will be communicating with [facility]. I think he has proven that he needs something more than just telemetry unit. He will need to use a step-down, or IMCU level status. I believe he is likely INTERMACS 2 or INTERMACS 3 level left ventricular assist device implantation. It has been a pleasure taking care of Mr. Thompson. Thank you very much for the consultation. If you have any questions, please give me a call. Job ID: [id number] MTDD
[2019-01-25] MEDS ORDERED: Milrinone 20 MG in Sodium Chloride 0.9% 100 ML IVPB SCH (09:30)
--- NOTE | 2019-01-25 10:59 | DIS ---
DATE OF ADMISSION: 01/21/2019 DATE OF DISCHARGE: 01/25/2019 PRIMARY CARE PROVIDER: Nilesh Vega MD FINAL DIAGNOSES: Acute on chronic combined systolic/diastolic heart failure, hypotension, cardiomyopathy nonischemic, and acute renal failure. DISCHARGE MEDICATIONS: Unknown. ALLERGIES: CODEINE, PENICILLIN, AND PREDNISONE. CODE STATUS: Full resuscitation. PENDING AT TIME OF DISCHARGE: Nothing. DIET: Heart healthy. HOSPITAL COURSE: The patient was admitted to the hospital with low blood pressure, had a history of chronic systolic heart failure with 15% to 20% EF. On admission, chest x-ray showed an essentially normal size heart, an AICD in the left upper chest. No evidence of heart failure. ADMITTING LABORATORY DATA: White count 12.8, hemoglobin 14.3, platelet count 210,000. Sodium 136, potassium 5.1, CO2 of 28, BUN 42, creatinine 2.23. Cardiac enzymes; troponin 0.033, less than 0.011, less than 0.010. BNP 73. The patient was seen in consultation by Dr. Kj Zamora. The patient apparently already had been seen by [facility] for possible transplant. Dr. Zamora facilitated transfer to [facility], receiving physician not documented at this time. I would note for the record that when I came on to see the patient, he is gone. There is no discharge order on the chart. There is no discharge medicine reconciliation on the chart. Followup will be with PCP after discharge from [facility]. Job ID: [id number]
[2019-01-25 11:41] VITALS: TEMP 98.1
--- NOTE | 2019-01-27 05:23 | PQF ---
[employer] SCARLET Fuller CYPRIEN [id number] U-[id number] [id number] CLINICAL DOCUMENTATION CLARIFICATION FORM: POST DISCHARGE Addendum to original discharge summary date: ____ Late entry note date: __ DATE: 01/27/2019 Please exercise your independent, professional judgment in responding to the clarification form. Clinical indicators are provided on the bottom of this form for your review Please check appropriate box(s) to clarify if the following diagnosis has been ruled in or ruled out: Cardiogenic Shock (CDI/Coding list diagnosis here) [ ] Ruled in diagnosis [ ] Continue to treat [ ] Resolved [ ] Ruled out diagnosis [ ] Cannot rule out diagnosis [ ] Other diagnosis [ ] Unable to determine In addition, please specify: Present on Admission (POA): [ x] Yes [ ] No [ ] Unable to determine For continuity of documentation, please document condition throughout progress notes and discharge summary. Thank You. CLINICAL INDICATORS - SIGNS / SYMPTOMS / LABS Cardiogenic shock - Documented in Consultaion Report on 01/22 by Noah Underwood Ejection fraction is 15% - Documented in Consultaion Report on 01/22 by Noah Underwood he has both systolic and diastolic sysfunction - Documented in Consultaion Report on 01/22 by Noah Underwood RISK FACTORS OG - Documented in H&P on 01/21 by Davis John Hypotension - Documented in H&P on 01/21 by Davis John CKD3 - Documented in H&P on 01/21 by Davis John TREATMENTS Start dobutamine at 2.5 mcg/kg per minute - Documented in Consultaion Report on 01/22 by Noah Underwood lasix 40 mg IV one dose - Documented in Consultaion Report on 01/22 by Noah Underwood Increase milrinone to 0.25 - Documented in PNs on 12/25 by Tong rodrigue W [employer] SC[employer]LET Fuller CYPRIEN [id number] U-A06 [id number] CLINICAL DOCUMENTATION CLARIFICATION FORM: POST DISCHARGE Addendum to original discharge summary date: ____ Late entry note date: __ DATE: 01/27/2019 Please exercise your independent, professional judgment in responding to the clarification form. Clinical indicators are provided on the bottom of this form for your review Please check appropriate box(s) to clarify if the following diagnosis has been ruled in or ruled out: Cardiogenic Shock (CDI/Coding list diagnosis here) [ ] Ruled in diagnosis [ ] Continue to treat [ ] Resolved [ ] Ruled out diagnosis [ ] Cannot rule out diagnosis [ ] Other diagnosis _Severe cardiomyopathy with low blood pressure without shock [ ] Unable to determine In addition, please specify: Present on Admission (POA): [ ] Yes [ ] No [ ] Unable to determine For continuity of documentation, please document condition throughout progress notes and discharge summary. Thank You. CLINICAL INDICATORS - SIGNS / SYMPTOMS / LABS Cardiogenic shock - Documented in Consultaion Report on 01/22 by Noah Underwood Ejection fraction is 15% - Documented in Consultaion Report on 01/22 by Noah Underwood he has both systolic and diastolic sysfunction - Documented in Consultaion Report on 01/22 by Noah Underwood RISK FACTORS OG - Documented in H&P on 01/21 by Davis John Hypotension - Documented in H&P on 01/21 by Davis John CKD3 - Documented in H&P on 01/21 by Davis John TREATMENTS Start dobutamine at 2.5 mcg/kg per minute - Documented in Consultaion Report on 01/22 by Noah Underwood lasix 40 mg IV one dose - Documented in Consultaion Report on 01/22 by Noah Underwood Increase milrinone to 0.25 - Documented in PNs on 12/25 by Noah Bowers [employer] (This form is maintained as a part of the permanent medical record) 2014 [email or web address]. All Rights Reserved [email or web address] [not provided] MTDD
--- NOTE | 2019-01-27 05:41 | PQF ---
[employer] SCARLET Fuller MICHAEL MCNALLY [id number] U-A06 [id number] CLINICAL DOCUMENTATION CLARIFICATION FORM: POST DISCHARGE Addendum to original discharge summary date: ____ Late entry note date: __ DATE: 01/27/2019 ATTN:MICHAEL OGLESBY Please exercise your independent, professional judgment in responding to the clarification form. Clinical indicators are provided on the bottom of this form for your review Please check appropriate box(s): AMI TYPE: [ ] Acute Coronary Syndrome (ACS) without Acute WA meaning Unstable Angina [ ] NSTEMI (WA type I) [ X ] NSTEMI due to Demand Ischemia (AMI Type II) [ ] Demand Ischemia without WA [ ] STEMI (please also specify site and arterysee below) If STEMI, SITE:[ ] Anterior [ ] Apical [ ] Lateral [ ] Inferior [ ] Posterior [ ] Q Wave [ ] Septal [ ] Unable to Determine SPECIFIC ARTERY (Based on site) [ ] Left Main Coronary[ ] Diagonal [ ] Left Anterior Descending[ ] Oblique Marginal [ ] Right Coronary Artery[ ] Unable to Determine [ ] Left Circumflex ONSET OF INFARCTION: [ ] Onset Less than 4 weeks of admission [ ] Onset Greater than 4 weeks of admission [ ] Unable to determine DUE TO (if applicable): [ ] Stent occlusion [ ] In-Stent stenosis [ ] Occlusion of coronary bypass graft [ ] Complication of PCI [ ] Underlying CAD [ ] Other [ ] Other diagnosis [ ] Unable to determine In addition, please specify: Present on Admission (POA): [ ] Yes [ ] No [ ] Unable to determine CLINICAL INDICATORS - SIGNS / SYMPTOMS / LABS Elevated Troponin - Documented in DS on 01/21 by Orlin Aiken MD Cardiogenic shock - Documented in Consultaion Report on 01/22 by Noah Underwood Ejection fraction is 15% - Documented in Consultaion Report on 01/22 by Noah Underwood Cardiomyopathy nonischemic - Documented in DS on 01/25 by [facility] Carsiac enxymes: troponin 0.033, less than 0.011 less than 0.010, BNP 73 - Documented in DS on 01/25 by [facility] RISKS: OG - Documented in H&P on 01/21 by Davis John HTN CKD3 - Documented in H&P on 01/21 by Davis John 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 All Rights Reserved [email or web address] [not provided] MTDD
== END 2019-01-25 09:30 | disposition short-term general hospital (02) | DRG 280 ==
LOC: ERS 14:37 → CCU 18:47
PROVIDERS: ADMIT Internal Medicine; ATTEND Internal Medicine
DX: I13.0 Hypertensive heart and chronic kidney disease with heart failure and stage 1 through stage 4 chronic kidney disease, or unspecified chronic kidney disease (principal); I50.43 Acute on chronic combined systolic (congestive) and diastolic (congestive) heart failure; I21.4 Non-ST elevation (NSTEMI) myocardial infarction; R57.0 Cardiogenic shock; I95.2 Hypotension due to drugs; Z95.810 Presence of automatic (implantable) cardiac defibrillator; I42.8 Other cardiomyopathies; H54.40 Blindness, one eye, unspecified eye; Z98.49 Cataract extraction status, unspecified eye; Z88.0 Allergy status to penicillin; Z88.5 Allergy status to narcotic agent; Z79.899 Other long term (current) drug therapy; Z79.82 Long term (current) use of aspirin; N18.3 Chronic kidney disease, stage 3 (moderate); J44.9 Chronic obstructive pulmonary disease, unspecified; Z87.891 Personal history of nicotine dependence; T50.2X5A Adverse effect of carbonic-anhydrase inhibitors, benzothiadiazides and other diuretics, initial encounter
CPT/HCPCS: 36415; 71045; 80048; 80053; 82550; 82553; 83735; 83880; 84145; 84484; 85025; 85610; 86850; 86900; 86901; 87040; 87086; 87149; 93005; 96365; 96366; 99214; G0463; J0282; J1250; J1644; J1940; J2260; J3370; J3490; J7050; J7070